=== PATIENT | female | born 2000 | race Caucasian/White ===

== ENCOUNTER 2021-06-30 18:20 | Observation (INO) | payer OTHER, SELFPAY ==
[2021-06-30] VITALS (7 sets, daily range): PULSE 97–111; O2SAT 95–100; BMI 27.3
--- NOTE | 2021-06-30 19:31 | OBADM ---
This patient, Jeremi Alonso, admitted to the OB room OB Post 117 for observation. Patient/family oriented to hospital policies and general routines including ID bracelet, bed and alarms, visiting hours, pain management, procedures, bathroom and other care routines, personal items, smoking policy, room service/diet, and visiting hours. Patient/Family are encouraged to report perceived risks to care and to ask questions if they do not understand what they are told or what they should do.
--- NOTE | 2021-07-07 13:51 | PM.OBTRLD ---
OB - Triage/Final Diagnosis Visit Information Comments/Additional reasons for admission: I have assessed the risk for this patient, Jeremi Alonso, and determined that she would benefit from observation care. Final Diagnosis (1) Vaginal discharge during : Code(s): O26.899 - Other specified related conditions, unspecified trimester; N89.8 - Other specified noninflammatory disorders of vagina Status: Acute
== END 2021-06-30 20:00 | disposition home or self-care (01) ==
PROVIDERS: Admitting Provider Obstetrics & Gynecology; Visit Provider Obstetrics & Gynecology
DX: O26.892 Other specified pregnancy related conditions, second trimester (principal); N89.8 Other specified noninflammatory disorders of vagina; Z3A.27 27 weeks gestation of pregnancy
CPT/HCPCS: G0378; G0379

== ENCOUNTER 2021-08-01 12:00 | Observation (INO) | payer OTHER, SELFPAY ==
[2021-08-01] VITALS (8 sets, daily range): BP systolic 101–118; BP diastolic 55–84; PULSE 84–101; TEMP 36.8–37.2; BMI 27.5
[2021-08-01 13:09] LABS: Add Urine Microscopic? YES; Appearance Urine Clear (Clear); Bacteria Urine Trace /hpf; Bilirubin Urine Negative (Negative); Blood Urine Negative (Negative); Color Urine Straw (Yellow); Glucose Urine UA Negative (Negative); Ketones Urine 1+ mg/dL (Negative); Leukocyte Esterase Ur Trace LEU/UL (Negative); Mucus Urine Rare /lpf; Nitrate Urine Negative (Negative); Protein Urine Negative (Negative); RBC Urine 0-2 /hpf (0-2); Specific Grav Ur 1.008 (1.001-1.035); Squamous Epithelial Cell Urine Occasional /hpf (Few); Urobilinogen Urine Negative mg/dL (<2.0); WBC Urine 0-3 /hpf
[2021-08-01] MEDS: DEXTROSE 5%/LACTATED RINGERS 1,000 ML 999 ML IV CONT (14:36)
[2021-08-01] MEDS: ONDANSETRON INJ 4 MG/2 ML VIAL IV PUSH (14:38)
--- NOTE | 2021-08-01 16:24 | PM.OBTRLD ---
OB - Triage/Final Diagnosis Visit Information Date of evaluation: 08/01/21 Reason for evaluation: threatened labor and other (nausea) Comments/Additional reasons for admission: I have assessed the risk for this patient, Jeremi Alonso, and determined that she would benefit from observation care. Evaluation Baseline heart rate: 125 Variability: Moderate (11-25) monitor accelerations: Present monitor decelerations: Variable Cervical dilation (cm): 0 Laboratory results: Laboratory Tests 08/01/21 12:55 Urine Color Straw Urine Appearance Clear Urine pH 7.0 Ur Specific [employer] 1.008 Urine Protein Negative Urine Glucose (UA) Negative Urine Ketones 1+ H Ur Blood (Man) Negative Urine Nitrate Negative Urine Bilirubin Negative Urine Urobilinogen Negative Leukocyte Esterase Rfl Trace H Urine RBC 0-2 Urine WBC 0-3 Ur Squamous Epith Cells Occasional Urine Bacteria Trace Urine Mucus Rare Vital signs: Vital Signs - 24 hr 08/01/21 12:53 08/01/21 12:54 08/01/21 13:00 Temperature 37.2 C Pulse Rate 93 97 Blood Pressure 113/74 118/77 08/01/21 14:00 08/01/21 15:10 08/01/21 16:00 Temperature Pulse Rate 99 101 H 93 Blood Pressure 111/72 112/66 104/84
== END 2021-08-01 17:19 | disposition home or self-care (01) ==
PROVIDERS: Admitting Provider Student in an Organized Health Care Education/Training Program; PCP Physician Assistant; Visit Provider Student in an Organized Health Care Education/Training Program
DX: O47.9 False labor, unspecified (principal); R11.0 Nausea; Z3A.00 Weeks of gestation of pregnancy not specified
CPT/HCPCS: 81001; 84112; 96361; 96374; G0378; G0379; J2405; J7121

== ENCOUNTER 2021-08-03 00:12 | Observation (INO) | payer OTHER, SELFPAY ==
[2021-08-03] VITALS (31 sets, daily range): BP systolic 94–118; BP diastolic 49–68; PULSE 86–130; O2SAT 97–100
[2021-08-03] MEDS: TERBUTALINE SULFATE 1 MG/ML VIAL 0.25 MG SUB-Q (01:55)
--- NOTE | 2021-08-21 16:58 | PM.OBTRLD ---
OB - Triage/Final Diagnosis Visit Information Comments/Additional reasons for admission: I have assessed the risk for this patient, Jeremi Alonso, and determined that she would benefit from observation care. Final Diagnosis (1) False labor: Code(s): O47.9 - False labor, unspecified Status: Acute
== END 2021-08-03 03:35 | disposition home or self-care (01) ==
PROVIDERS: Admitting Provider Obstetrics & Gynecology; PCP Physician Assistant; Visit Provider Obstetrics & Gynecology
DX: O47.9 False labor, unspecified (principal); Z3A.00 Weeks of gestation of pregnancy not specified
CPT/HCPCS: 96372; G0378; G0379; J3105

== ENCOUNTER 2021-08-05 11:48 | Observation (INO) | payer OTHER, SELFPAY ==
[2021-08-05] VITALS (34 sets, daily range): BP systolic 91–111; BP diastolic 44–66; PULSE 100–137; TEMP 37.4; O2SAT 98–100; BMI 27.1
--- NOTE | ~2021-08-05 | US_ITS ---
EXAMINATION: US OB limited w BPP DATE: 08/05/2021 18:12 INDICATION: Contractions in variable cardiac decelerations during third trimester . TECHNIQUE: Real-time pelvic ultrasound was performed. The interpreting radiologist was not present fo r the study. COMPARISON: None. FINDINGS: There is a single living fetus in vertex presentation. The placenta is anterior. heart rate is 126 beats per minute (bpm). The cervical length measured 2.4 cm and 2.7 cm in the dependent measurem ents which is below normal range but without evident funneling. Biophysical profile performed by the technologist: breathing (30 sec sustained breathing in 30 minutes): 2 out of 2 movement (3 gross body movements in 30 minutes): 2 out of 2 tone (one episode of wdgkcen-yhxdclwrm-vchtmsv limb movement): 2 out of 2 Amniotic fluid pocket (2 cm): 2 out of 2 Total score: 8 out of 8 IMPRESSION: 1. Single living fetus in vertex presentation with heart rate of 128 bpm. 2. Biophysical profile 8 out of 8. 3. Mildly decreased cervical length measuring 2.4-2.7 similar but without funneling. Reviewed, dictated and finalized at location H. ECT GEOPHYSICIST IMPRESSION: 1. Single living fetus in vertex presentation with heart rate of 128 bpm. 2. Biophysical profile 8 out of 8. 3. Mildly decreased cervical length measuring 2.4-2.7 similar but without funne ling.
--- NOTE | 2021-08-05 12:11 | OBADM ---
This patient, Jeremi Alonso, admitted to the OB room OB Post 116 for observation. Patient/family oriented to hospital policies and general routines including ID bracelet, bed and alarms, visiting hours, pain management, procedures, bathroom and other care routines, personal items, smoking policy, room service/diet, and visiting hours. Patient/Family are encouraged to report perceived risks to care and to ask questions if they do not understand what they are told or what they should do.
[2021-08-05] MEDS: LACTATED RINGERS 1,000 ML 999 ML IV CONT (12:37)
[2021-08-05] MEDS: ONDANSETRON INJ 4 MG/2 ML VIAL IV PUSH (12:38)
[2021-08-05 12:52] LABS: Alanine Aminotransferase 23 U/L (4-35); Albumin Level 3.6 g/dL (3.5-5.1); Alkaline Phosphatase 112 U/L (38-126); Anion Gap 8 mmol/L (8-16); Aspartate Amino Transferase 28 U/L (14-36); Bilirubin,Total 0.6 mg/dL (0.2-1.3); Blood Urea Nitrogen 6 mg/dL (7-17); Calcium 8.7 mg/dL (8.4-10.2); Carbon Dioxide 22 mmol/L (22-30); Chloride 103 mmol/L (98-107); Estimated Glomerular Filt Rate > 60; Glucose 120 mg/dL (65-110); Potassium 3.1 mmol/L (3.4-5.0); Sodium 133 mmol/L (137-145)
[2021-08-05 15:43] LABS: Add Urine Microscopic? YES; Appearance Urine Clear (Clear); Bacteria Urine Trace /hpf; Bilirubin Urine Negative (Negative); Blood Urine Negative (Negative); Color Urine Yellow (Yellow); Glucose Urine UA Negative (Negative); Ketones Urine 2+ mg/dL (Negative); Leukocyte Esterase Ur Negative LEU/UL (NEGATIVE); Mucus Urine Rare /lpf; Nitrate Urine Negative (Negative); Protein Urine 1+ mg/dL (Negative); RBC Urine 0-2 /hpf (0-2); Specific Grav Ur 1.017 (1.001-1.035); Squamous Epithelial Cell Urine Rare /hpf (Few); WBC Urine 0-3 /hpf (0-3)
[2021-08-05] MEDS: NIFEdipine 10 MG CAPSULE 20 MG PO (16:03)
[2021-08-05] MEDS: hydrOXYzine HCL 25 MG TABLET PO (16:04)
[2021-08-05] MEDS: PROMETHAZINE HCL 25 MG/ML AMPUL 12.5 MG IV PUSH (16:27)
[2021-08-05] MEDS: KCL 40 MEQ/0.45% NS 1,000 ML 200 ML IV CONT (16:28)
--- NOTE | 2021-08-05 17:32 | PM.IMHP ---
H&P: HPI History of Present Illness Date/Time: 08/05/21 17:32 Chief Complaint: persistent nausea/vomiting contractions Narrative: 21 yo at 32w4d who was seen in the office for her first OB visit with me. Pt c/o persistent N/V. Pt had been seen earlier last week for similar symptoms. Pt states she is also having persistent contractions. pt states the pain from the contractions makes her nausea worse. She has not been able to tolerate any PO since 0200. Review of Systems Cardiovascular: Cardiovascular: Denies chest pain, Denies leg edema, Denies palpitations, Denies dyspnea and Denies dyspnea on exertion Respiratory: Respiratory: Denies cough, Denies dyspnea and Denies dyspnea on exertion Gastrointestinal: Gastrointestinal: Denies abdominal pain, Denies constipation, Denies diarrhea, Denies nausea and Denies vomiting Genitourinary: Genitourinary: Denies hematuria, Denies urinary frequency, Denies dysuria, Denies pelvic pain, Denies urinary incontinence and Denies vaginal discharge Neurologic: Reports system reviewed and no additional complaints, except as documented Psychiatric: Psychiatric: Reports no additional psychiatric complaints Endocrine: Endocrine: Denies palpitations Meds Home Medications and Allergies Home Medications Medication Instructions Recorded Confirmed Type WesTab Plus 1 tablet PO DAILY 06/30/21 08/01/21 History aspirin 81 mg PO DAILY 06/30/21 08/01/21 History calcium carbonate-vitamin D3 1 tablet PO DAILY 06/30/21 08/01/21 History [Oysco 500/D] folic acid 2 mg PO BID 06/30/21 08/01/21 History hydroxyzine HCl 25 mg PO TID PRN 06/30/21 08/01/21 History omeprazole 20 mg PO DAILY 06/30/21 08/01/21 History valacyclovir 500 mg PO DAILY 06/30/21 08/01/21 History ondansetron HCl [Zofran] 4 mg PO Q6H PRN #20 tablet 08/01/21 Rx Allergies Allergy/AdvReac Type Severity Reaction Status Date / Time No Known Allergies Allergy Verified 06/30/21 19:10 Vital Signs Vital Signs - 24 hr 08/05/21 12:16 08/05/21 12:30 08/05/21 12:46 Pulse Rate 107 H 109 H 107 H Blood Pressure 111/66 99/62 L 95/57 L Pulse Oximetry 08/05/21 13:00 08/05/21 15:42 08/05/21 15:47 Pulse Rate 113 H Blood Pressure 91/56 L Pulse Oximetry 99 100 08/05/21 15:52 08/05/21 15:57 08/05/21 16:02 Pulse Rate Blood Pressure Pulse Oximetry 99 99 100 08/05/21 16:07 08/05/21 16:12 08/05/21 16:17 Pulse Rate Blood Pressure Pulse Oximetry 100 100 100 08/05/21 16:22 08/05/21 16:27 08/05/21 16:32 Pulse Rate Blood Pressure Pulse Oximetry 100 98 99 08/05/21 16:37 08/05/21 16:42 08/05/21 16:47 Pulse Rate Blood Pressure Pulse Oximetry 100 100 100 08/05/21 16:52 08/05/21 16:57 08/05/21 17:02 Pulse Rate Blood Pressure Pulse Oximetry 100 100 100 08/05/21 17:07 08/05/21 17:12 08/05/21 17:17 Pulse Rate Blood Pressure Pulse Oximetry 100 99 100 08/05/21 17:22 08/05/21 17:27 Pulse Rate Blood Pressure Pulse Oximetry 100 100 Exam Const: General: no acute distress Eyes: EOM: EOMs intact bilaterally Neck: Neck: supple Thyroid: thyroid normal Chest: Breast/axilla inspection: normal inspection of the breasts Breast/axilla palpation: normal palpation of the breasts, normal palpation of the axillae and no axillary lymphadenopathy Resp: Effort & Inspection: normal respiratory effort Auscultation: clear to auscultation bilaterally Cardio: Rate: regular rate Rhythm: regular rhythm GI: Inspection: non-distended GI Palp: Yes Soft to palpation, No Tenderness to palpation present (GI) and No Guarding due to palpation present (GI) Auscultation: normal bowel sounds : General: No bladder normal to palpation OB/external & speculum: external exam normal; no bleeding, vaginal bleeding and vaginal discharge Manual OB Exam: dilated fingertip Amniotic Fluid: no fluid Skin: General skin exam: normal color and no rashes or lesions noted Neur
[2021-08-05] MEDS: THIAMINE HCL INJ 100 MG, FOLIC ACID INJ 1 MG, MULTIVITAMINS-12 INJ VIAL 1 5 ML, MULTIVI... 125 MG IV CONT (22:39)
[2021-08-06] VITALS (12 sets, daily range): BP systolic 89–127; BP diastolic 41–89; PULSE 97–103; RESP 16–18; TEMP 36.9–37.4
[2021-08-06 06:27] LABS: Anion Gap 4 mmol/L (8-16); Blood Urea Nitrogen 4 mg/dL (7-17); Calcium 7.5 mg/dL (8.4-10.2); Carbon Dioxide 22 mmol/L (22-30); Chloride 104 mmol/L (98-107); Estimated CRCL calculation 145 ml/min; Estimated Glomerular Filt Rate > 60; Glucose 110 mg/dL (65-110); Potassium 2.8 mmol/L (3.4-5.0); Sodium 130 mmol/L (137-145)
[2021-08-06] MEDS: ACETAMINOPHEN 325 MG TABLET 650 MG PO (07:41)
[2021-08-06] MEDS: KCL 40 MEQ/0.9% SOD CHL 1,000 ML 200 ML IV CONT (08:17)
[2021-08-06] MEDS: LACTATED RINGERS 1,000 ML 125 ML IV CONT (14:18)
--- NOTE | 2021-08-06 15:26 | PM.DS ---
DS: Admitting Diagnosis Discharge Date 08/06/21 Admitting Diagnosis contractions hyperemesis hypokalemia DS: Summary Hospital Course Reason for hospitalization: hyperemesis contractions hypokalemia Hospital Course: 21 yo G1 at 32w who was seen in office complaining of hyperemesis. Pt states she was unable to tolerate PO. She was also having regular contractions. The pain of her contractions exacerbated her nausea. Pt was given IVF hydration and anti-emetics. Pt's symptoms improved overnight. US showed CL >2.5cm. Pt was noted to be hypokalemic likely due to emesis. Pt was given potassium replacement. Status at Discharge Functional status at discharge: independent ambulation Overall status at discharge: patient is back to baseline Time Spent with Patient Time attestation: Total time spent providing and/or coordinating discharge services: Time spent: Less than 30 minutes Exam Const: General: cooperative, healthy appearing and comfortable Nutritional Appearance: average body habitus Orientation/consciousness: oriented to person Resp: Effort & Inspection: normal respiratory effort and able to speak in complete sentences Cardio: Rate: regular rate Rhythm: regular rhythm GI: Inspection: normal to inspection, no edema, non-distended and other (Gravid) GI Palp: No abdominal tenderness and Yes Soft to palpation Skin: General skin exam: normal color and no rashes or lesions noted Neuro: General: patient oriented x3 Extrem: General: normal to inspection and full ROM DS: Data Data Completed and Pending Labs on day of discharge: Labs from last 24 hours 08/06/21 08/06/21 08/05/21 15:03 05:46 15:23 Sodium Pending 130 L Potassium Pending 2.8 L* Chloride Pending 104 Carbon Dioxide Pending 22 Anion Gap Pending 4 L BUN Pending 4 L Creatinine Pending 0.50 L Estim Creat Clear Calc Pending 145 Estimated GFR Pending > 60 Glucose Pending 110 Calcium Pending 7.5 L Urine Color Yellow Urine Appearance Clear Urine pH 6.0 Ur Specific [place] 1.017 Urine Protein 1+ H Urine Glucose (UA) Negative Urine Ketones 2+ H Ur Blood (Man) Negative Urine Nitrate Negative Urine Bilirubin Negative Urine Urobilinogen 2.0 H Ur Leukocyte Esterase Negative Urine RBC 0-2 Urine WBC 0-3 Ur Squamous Epith Cells Rare Urine Bacteria Trace Urine Mucus Rare Discharge Plan Discharge Discharging Clinician: Jaime Arevalo Patient Disposition: Home, Self-Care Activity: as tolerated and pelvic rest Diet: regular Discharge Instructions: OB ANTEPARTUM DISCHARGE INSTRUCTIONS This information is given to help you properly care for yourself at home after your discharge from the hospital. Follow these instructions until your doctor tells you otherwise. DIET: Eat Three Well Balanced Meals per Day Drink at Least Eight 8-Ounce Glasses of Caffeine-Free Beverages Daily Additional Diet Instructions: ACTIVITY: As Tolerated Increase Periods of Rest Additional Activity Instructions: RETURN TO LABOR AND DELIVERY IF YOU HAVE: Any Change In Baby's Normal Movement Pattern Any Leakage of Fluid More than 6 Contractions in an Hour Vaginal Bleeding Additional Reasons to Return to Labor and Delivery: Contractions may feel like abdominal pain, tightening, cramping, pressure, back ache, or thigh ache. OTHER INSTRUCTIONS: FOLLOW-UP CARE: Keep Next Scheduled Appointment To see in/on Valuables released to patient or family? Medications from home returned to patient? I Acknowledge Receipt of and Understand the Above Instructions IF YOU HAVE ANY QUESTIONS REGARDING THESE INSTRUCTIONS, PLEASE CALL [phone]. IF PROBLEMS ARISE, CALL YOUR PROVIDER. IF EMERGENCY CARE IS NEEDED, [facility]S EMERGENCY ROOM IS AVAILABLE 24 HOURS A DAY. Stand Alone Forms: General Discharge Information Follow-up/Referra
[2021-08-06 15:40] LABS: Anion Gap 2 mmol/L (8-16); Blood Urea Nitrogen 3 mg/dL (7-17); Carbon Dioxide 24 mmol/L (22-30); Chloride 107 mmol/L (98-107); Estimated CRCL calculation 177 ml/min; Estimated Glomerular Filt Rate > 60; Glucose 94 mg/dL (65-110); Potassium 3.5 mmol/L (3.4-5.0); Sodium 133 mmol/L (137-145)
== END 2021-08-06 16:47 | disposition home or self-care (01) ==
PROVIDERS: Admitting Provider Student in an Organized Health Care Education/Training Program; PCP Physician Assistant; Visit Provider Student in an Organized Health Care Education/Training Program
DX: O21.1 Hyperemesis gravidarum with metabolic disturbance (principal); O60.03 Preterm labor without delivery, third trimester; Z3A.32 32 weeks gestation of pregnancy
CPT/HCPCS: 36415; 59025; 76815; 76819; 80048; 80053; 81001; 96361; 96365; 96366; 96367; 96375; A9270; G0378; G0379; J2405; J2550; J3411; J3475; J7120; J7121

== ENCOUNTER 2021-08-17 22:35 | Observation (INO) | payer OTHER, SELFPAY ==
[2021-08-17] VITALS (20 sets, daily range): BP systolic 104–120; BP diastolic 65–76; PULSE 83–110; O2SAT 99–100; BMI 27.4
[2021-08-17] MEDS: ACETAMINOPHEN 500 MG TABLET 1000 MG PO (23:30)
[2021-08-18] VITALS (9 sets, daily range): BP systolic 106–120; BP diastolic 66–83; PULSE 91–112; O2SAT 100
[2021-08-18 00:20] LABS: Add Urine Microscopic? NO; Appearance Urine Clear (Clear); Bilirubin Urine Negative (Negative); Blood Urine Negative (Negative); Color Urine Yellow (Yellow); Glucose Urine UA Negative (Negative); Ketones Urine Negative (Negative); Leukocyte Esterase Ur Negative LEU/UL (Negative); Nitrate Urine Negative (Negative); Protein Urine Negative (Negative); Specific Grav Ur 1.008 (1.001-1.035); Urobilinogen Urine Negative mg/dL (<2.0)
[2021-08-18] MEDS: TERBUTALINE SULFATE 1 MG/ML VIAL 0.25 MG SUB-Q (00:52)
--- NOTE | 2021-08-21 11:23 | P.PNOB_ITS ---
OB - Triage/Final Diagnosis Visit Information Date of evaluation: 08/18/21 Reason for evaluation: threatened labor Comments/Additional reasons for admission: I have assessed the risk for this patient, Jeremi Francois Gavin, and determined that she would benefit from obs ervation care. Evaluation Laboratory results: Laboratory Tests 08/18/21 00:09 Urine Color Yellow Urine Appearance Clear Urine pH 7.0 Ur Specific [place] 1.008 Urine Protein Negative Urine Glucose (UA) Negative Urine Ketones Negative Ur Blood (Man) Negative Urine Nitrate Negative Urine Bilirubin Negative Urine Urobilinogen Negative Leukocyte Esterase Rfl Negative
== END 2021-08-18 02:13 | disposition home or self-care (01) ==
PROVIDERS: Admitting Provider Student in an Organized Health Care Education/Training Program; PCP Physician Assistant; Visit Provider Student in an Organized Health Care Education/Training Program
DX: O47.9 False labor, unspecified (principal); Z3A.00 Weeks of gestation of pregnancy not specified
CPT/HCPCS: 81003; 84112; A9270; G0378; G0379; J3105

== ENCOUNTER 2021-08-26 09:54 | Observation (INO) | payer OTHER, SELFPAY ==
[2021-08-26 10:01] VITALS: BP 127/86; PULSE 112
[2021-08-26 10:15] VITALS: BP 138/78; PULSE 122
[2021-08-26 10:30] VITALS: BP 126/78; PULSE 115
--- NOTE | 2021-08-26 10:30 | OBADM ---
This patient, Jeremi Alonso, admitted to the OB room Labor/Delivery/Recovery 106 for observation. Patient/family oriented to hospital policies and general routines including ID bracelet, bed and alarms, visiting hours, pain management, procedures, bathroom and other care routines, personal items, smoking policy, room service/diet, and visiting hours. Patient/Family are encouraged to report perceived risks to care and to ask questions if they do not understand what they are told or what they should do.
[2021-08-26] MEDS: ONDANSETRON INJ 4 MG/2 ML VIAL IV PUSH (10:33)
[2021-08-26 10:45] VITALS: BP 136/81; PULSE 105
[2021-08-26 11:00] VITALS: BP 120/69; PULSE 133
[2021-08-26] MEDS: ACETAMINOPHEN 500 MG TABLET 1000 MG PO (12:31)
[2021-08-26 13:22] LABS: Add Urine Microscopic? YES; Appearance Urine Cloudy (Clear); Bacteria Urine 2+ /hpf; Bilirubin Urine Negative (Negative); Blood Urine Negative (Negative); Color Urine Straw (Yellow); Glucose Urine UA Negative (Negative); Ketones Urine Trace mg/dL (Negative); Leukocyte Esterase Ur 1+ LEU/UL (Negative); Mucus Urine Rare /lpf; Nitrate Urine Negative (Negative); Protein Urine Negative (Negative); RBC Urine 0-2 /hpf (0-2); Specific Grav Ur 1.008 (1.001-1.035); Squamous Epithelial Cell Urine Few /hpf (Few); Urobilinogen Urine Negative mg/dL (<2.0)
[2021-08-26] MEDS: LACTATED RINGERS 1,000 ML 125 ML IV CONT (15:31)
--- NOTE | 2021-08-29 08:03 | P.PNOB_ITS ---
OB - Triage/Final Diagnosis Visit Information Date of evaluation: 08/26/21 Reason for evaluation: threatened labor Comments/Additional reasons for admission: I have assessed the risk for this patient, Jeremi Francois Saulparris, and determined that she would benefit from obs ervation care. Evaluation Laboratory results: Laboratory Tests 08/26/21 12:38 Urine Color Straw Urine Appearance Cloudy H Urine pH 7.0 Ur Specific [place] 1.008 Urine Protein Negative Urine Glucose (UA) Negative Urine Ketones Trace Ur Blood (Man) Negative Urine Nitrate Negative Urine Bilirubin Negative Urine Urobilinogen Negative Leukocyte Esterase Rfl 1+ H Urine RBC 0-2 Urine WBC 4-6 H Ur Squamous Epith Cells Few Urine Bacteria 2+ H Urine Mucus Rare
== END 2021-08-26 14:48 | disposition home or self-care (01) ==
PROVIDERS: Admitting Provider Student in an Organized Health Care Education/Training Program; PCP Physician Assistant; Visit Provider Student in an Organized Health Care Education/Training Program
DX: O47.03 False labor before 37 completed weeks of gestation, third trimester (principal); Z3A.35 35 weeks gestation of pregnancy
CPT/HCPCS: 81001; 96374; A9270; G0378; G0379; J2405; J7120

== ENCOUNTER 2021-09-16 02:15 | Inpatient (IN) | payer OTHER, SELFPAY ==
[2021-09-16] VITALS (87 sets, daily range): BP systolic 70–149; BP diastolic 35–120; PULSE 55–155; RESP 16–18; TEMP 36.5–37.7; O2SAT 94–100; BMI 27.5
[2021-09-16 02:49] LABS: Basophils Percent Auto 0.3 % (0.2-1.2); Eosinophils Absolute Auto 0.1 K/mm3 (0-0.3); Eosinophils Percent Auto 0.6 % (0-4.4); Hematocrit 33.2 % (37.0-47.0); Hemoglobin 11.2 g/dL (12.0-15.0); Immature Granulocyte Absolute 0.63 K/mm3 (0.00-0.031); Immature Granulocyte Percent A 5.4 % (0-0.5); Lymphocytes Absolute Auto 2.26 K/mm3 (0.9-3.2); Lymphocytes Percent Auto 19.6 % (18.3-44.2); Mean Corpuscular HGB Conc 33.7 g/dl (32-36); Mean Corpuscular Hemoglobin 29.8 pg (26-34); Mean Corpuscular Volume 88.3 fl (80-100); Mean Platelet Volume 11.1 fl (7.4-10.4); Monocytes Absolute Auto 1.2 K/mm3 (0.1-0.6); Monocytes Percent Auto 10.6 % (2.6-8.5); Neutrophils Absolute Auto 7.3 K/mm3 (1.3-6.7); Neutrophils Percent Auto 63.5 % (45.5-73.1); Platelet Count Result 201 k/mm3 (150-375); Red Blood Count 3.76 M/mm3 (4.2-5.4); White Blood Count 11.6 K/mm3 (4.5-10.0)
--- NOTE | 2021-09-16 03:07 | LDADM ---
This patient, Jeremi Alonso, was admitted to Labor/Delivery/Recovery 105 on 09/16/21 at 02:15. Plans for labor, pain management and were discussed with patient. Patient/family oriented to hospital policies and general routines including ID bracelet, bed and alarms, visiting hours, pain management, procedures, bathroom and other care routines, personal items, smoking policy, room service/diet and guest tray routines, infant security routines, and visiting hours. Patient/Family are encouraged to report perceived risks to care and to ask questions if they do not understand what they are told or what they should do. See OBIX for further documentation.
[2021-09-16] MEDS: ONDANSETRON INJ 4 MG/2 ML VIAL IV PUSH (03:17)
[2021-09-16] MEDS: LACTATED RINGERS 1,000 ML 125 ML IV CONT ×2 (03:17→04:08)
--- NOTE | 2021-09-16 03:49 | P.PNAN_ITS ---
Anes - Eval Pre Procedure Procedure: LAbor epidural Date/Time: 09/16/21 03:49 Surgeon: Irina Preop Diagnosis: Abd pain with contractions Pre Op Diagnosis: Leaking Patient Data Age: 21 Gender: F Height: 1.63 m Weight: 72.73 kg Last Vital Signs Temp 98.9 F 09/16/21 02:23 Pulse 99 09/16/21 03:00 BP 133/88 09/16/21 03:00 Allergies Allergy/AdvReac Type Severity Reaction Status Date / Time No Known Allergies Allergy Verified 06/30/21 19:10 Home Medications Medication Instructions Recorded Confirmed Type WesTab Plus 1 tablet PO DAILY 06/30/21 08/28/21 History calcium carbonate-vitamin D3 1 tablet PO DAILY 06/30/21 08/28/21 History [Oysco 500/D] hydroxyzine HCl 25 mg PO TID 06/30/21 08/28/21 History omeprazole 20 mg PO DAILY PRN 06/30/21 08/28/21 History valacyclovir 500 mg PO DAILY 06/30/21 08/28/21 History Laboratory Tests 09/16/21 09/16/21 02:40 02:40 WBC 11.6 K/mm3 H K/mm3 (4.5-10.0) RBC 3.76 M/mm3 L M/mm3 (4.2-5.4) Hgb 11.2 g/dL L g/dL (12.0-15.0) Hct 33.2 % L % (37.0-47.0) MCV 88.3 fl fl (80-100) MCH 29.8 pg pg (26-34) MCHC 33.7 g/dl g/dl (32-36) RDW 13.0 % % (11.5-14.5) Plt Count 201 k/mm3 k/mm3 (150-375) MPV 11.1 fl H fl (7.4-10.4) Immature Gran % (Auto) 5.4 % H % (0-0.5) Neut % (Auto) 63.5 % % (45.5-73.1) Lymph % (Auto) 19.6 % % (18.3-44.2) [place] % (Auto) 10.6 % H % (2.6-8.5) Eos % (Auto) 0.6 % % (0-4.4) Baso % (Auto) 0.3 % % (0.2-1.2) Lymph # (Auto) 2.26 K/mm3 K/mm3 (0.9-3.2) [place] # (Auto) 1.2 K/mm3 H K/mm3 (0.1-0.6) Eos # (Auto) 0.1 K/mm3 K/mm3 (0-0.3) Baso # (Auto) 0.0 K/mm3 K/mm3 (0.0-0.1) Abs Immat Gran (auto) 0.63 K/mm3 H K/mm3 (0.00-0.031) Absolute Neuts (auto) 7.3 K/mm3 H K/mm3 (1.3-6.7) Absolute Nucleated RBC 0.0 K/mm3 K/mm3 (0.0-0.012) Nucleated RBC % 0.0 % % (0.0-0.2) RPR Pending Patient hx anesthesia problems: none Family hx anesthesia problems: none Results Review: All pre-operative results and documents have been reviewed as part of the pre-operative evaluation. [facility] Past Medical History Medical History Anxiety and depression GERD (gastroesophageal reflux disease) Over weight and not yet delivered Seizure STD (female) Family History Family History Other No pertinent family history Social History Social History Smoking status: Never smoker Substance use: never Spiritual care concerns: No Exam Day of Procedure 09/16/21 03:49 Patient weight: overweight
[2021-09-16 06:08] LABS: Rapid Plasma Reagin Non-Reactive (NonReactive)
[2021-09-16] MEDS: OXYTOCIN 30 UNITS/NS 500 ML 30 UNITS/500 ML BAG 999 UNITS IV CONT (07:40)
--- NOTE | 2021-09-16 07:41 | WPDHPUPDATE1 ---
History and Physical Update Update Date/Time: 09/16/21 07:41 21 yo G1 at 38w4d who presents after SROM at 0200. She reports regular contractions. She denies any vaginal bleeding. 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 History and Physical has been reviewed, including an updated exam of the patient. There are NO changes in the patient's condition. Risks, benefits, and alternatives have been discussed and questions answered. Patient agrees to proceed with procedure. A/P: admit to L&D routine admission orders Rh+ GBS neg SROM no admission continuous EFM expectant management
--- NOTE | 2021-09-16 07:43 | PM.OBPRVD ---
OB - Delivery Note Procedure Procedure: Patient pushed for a spontaneous vaginal delivery. The fetus was delivered atraumatically and placed on the maternal abdomen. The cord was clamped and cut after 1 minute of life. The cord was double clamped and cut and a segment of cord was collected for cord gases. Cord blood was collected for blood type and Coomb's testing. The placenta delivered spontaneously and was noted to be intact. The perineum was inspected and there were no lacerations noted. The uterus was firm and good hemostasis was noted. The patient and fetus were stable in the delivery room. Intrapartal events: None Induction method: none Delivery monitor: external FHT Route of delivery: Episiotomy description: None Laceration Description: Periurethral Specimen: No Quantitative Blood Loss (ml): 150 Anesthesia type: Epidural Disposition: floor () Complications: No immediate complications Baby Date of : 03/16/22 Time of : 07:23 Weeks of gestation at delivery: 38 gender: Female Weight (pounds): 7 Weight (ounces): 2 presentation: vertex position: Right Occiput Anterior Placenta delivery description: Spontaneous cord vessel description: 3 Vessels score one minute: 9 score five minutes: 9
[2021-09-16] MEDS: OXYTOCIN 30 UNITS/NS 500 ML 30 UNITS/500 ML BAG 125 UNITS IV CONT (08:10)
--- NOTE | 2021-09-16 10:13 | PC.NURSE ---
Patient transferred to post room #283 per wheelchair from labor and delivery. Support person present. Oriented to unit, room, information board, rooming in, admission packet and security measures. Patient verbalizes understanding.
[2021-09-16] MEDS: ACETAMINOPHEN 325 MG TABLET 650 MG PO (19:21)
[2021-09-16] MEDS: IBUPROFEN 600 MG TABLET PO (19:21)
[2021-09-17 04:30] VITALS: BP 114/60; PULSE 68; RESP 18; TEMP 36.8
[2021-09-17 05:32] LABS: Hematocrit 28.1 % (37.0-47.0); Hemoglobin 9.2 g/dL (12.0-15.0)
[2021-09-17 07:35] VITALS: BP 116/62; PULSE 65; RESP 16; TEMP 36.6; O2SAT 98
[2021-09-17] MEDS: ACETAMINOPHEN 325 MG TABLET 650 MG PO (08:19)
[2021-09-17] MEDS: POLYSACCHARIDE IRON COMPLEX 150 MG CAPSULE PO (08:20)
[2021-09-17] MEDS: IBUPROFEN 600 MG TABLET PO (08:20)
[2021-09-17] MEDS: DOCUSATE SODIUM 100 MG CAPSULE PO (08:20)
--- NOTE | 2021-09-17 12:03 | PC.NURSE ---
Patient viewed the discharge video Mother & Baby Care, The First Two Weeks . Patient was given the opportunity and encouraged to ask questions. Patient verbalized understanding of information shared and has been given the mother/baby guide for home reference.
--- NOTE | 2021-09-17 12:47 | WPDANLDPN2 ---
Anes-Prog Note L&D Date/Time: 09/17/21 12:47 Comfortable throughout: labor and delivery Neuraxial method: epidural Epidural/Spinal procedure site: clean & non-tender Neuro status: Neuro function grossly intact. Cardiovascular status: normal Respiratory status: normal Airway patency: baseline Mental status: baseline Post-Op hydration status: normal Vital Signs: Last Vital Signs Temp 36.6 C 09/17/21 07:35 Pulse 65 09/17/21 07:35 Resp 16 09/17/21 07:35 BP 116/62 09/17/21 07:35 Pulse Ox 98 09/17/21 07:35 Pain score (VAS): 08/26 Post-procedural complaints: none Patient feedback: Patient satisfied with anesthetic care.
--- NOTE | 2021-09-17 13:13 | PM.OBDSVD ---
DS: Admitting Diagnosis Discharge Date 09/17/21 Admitting Diagnosis spontaneous rupture of membranes intrauterine at term OB - DS: Summary OB Procedures : None OB Procedures Intrapartum: Spontaneous Vag Delivery OB Procedures: : None Status at Discharge Functional status at discharge: independent ambulation Overall status at discharge: patient is back to baseline Time Spent with Patient Time attestation: Total time spent providing and/or coordinating discharge services: Time spent: Less than 30 minutes Exam Const: General: comfortable and no acute distress Resp: Effort & Inspection: normal respiratory effort Auscultation: clear to auscultation bilaterally Cardio: Rate: regular rate GI: GI Palp: Yes Soft to palpation Auscultation: normal bowel sounds Other: Fundus firm below umbilicus Psych: Appearance: grossly normal Mental Status: mental status grossly normal Affect: normal affect DS: Data Data Completed and Pending Labs on day of discharge: Labs from last 24 hours 09/17/21 04:49 Hgb 9.2 L Hct 28.1 L Discharge Plan Discharge Discharging Clinician: Jaime Arevalo Patient Disposition: Home, Self-Care Activity: as tolerated and pelvic rest Diet: regular Patient Instructions: Antibiotic Form, Vaginal Delivery (DC) Stand Alone Forms: General Discharge Information Follow-up/Referrals: Jaime Arevalo MD [Physician] - 4 Weeks Discharge Medications: New acetaminophen [Mapap (acetaminophen)] 325 mg Tablet 650 mg PO Q6H PRN (Reason: Mild Pain (1-3) Or Headache) Qty: 30 RF: 0 ibuprofen 600 mg Tablet 600 mg PO Q6H PRN (Reason: Cramping) Qty: 30 RF: 0 polysaccharide iron complex 150 mg iron Capsule 150 mg PO BIDWM Qty: 60 RF: 0 Continued valacyclovir 500 mg tablet 500 mg PO DAILY RF: 0 omeprazole 20 mg capsule,delayed release(DR/EC) 20 mg PO DAILY PRN (Reason: Heartburn) RF: 0 hydroxyzine HCl 25 mg tablet 25 mg PO TID RF: 0 calcium carbonate-vitamin D3 [Oysco 500/D] 500 mg(1,250mg) -200 unit tablet 1 tablet PO DAILY RF: 0 WesTab Plus 27 mg iron- 1 mg tablet 1 tablet PO DAILY RF: 0 Date of admission: 09/16/21 02:15 Primary Care Provider: SaraiJoanie Admitting Provider: Jaime Arevalo Attending physician on admission: Jaime Arevalo Condition: Stable
== END 2021-09-17 15:55 | disposition home or self-care (01) | DRG 560 ==
LOC: ANHLDR 02:58 → ANHOB2 11:14
PROVIDERS: Admitting Provider Obstetrics & Gynecology; PCP Physician Assistant; Visit Provider Student in an Organized Health Care Education/Training Program
DX: O98.52 Other viral diseases complicating childbirth (principal); B00.9 Herpesviral infection, unspecified; O71.82 Other specified trauma to perineum and vulva; Z3A.38 38 weeks gestation of pregnancy; Z37.0 Single live birth
CPT/HCPCS: 36415; 85014; 85018; 85025; 86592; 86850; 86900; 86901; A9270; J2405; J2590; J2795; J7120

== ENCOUNTER 2022-09-04 16:20 | Emergency (ER) | payer OTHER, SELFPAY ==
[2022-09-04] VITALS (7 sets, daily range): BP systolic 103–131; BP diastolic 63–81; PULSE 73–110; RESP 14–18; TEMP 36.7; O2SAT 98–100
--- NOTE | 2022-09-04 19:55 | ED.GENADULT ---
HPI - General Adult General Chief complaint: Anxiety Stated complaint: low bp Time Seen by Provider: 09/04/22 18:55 Source: patient Mode of arrival: ambulatory Limitations: no limitations History of Present Illness HPI narrative: Patient is a 22 y/o female who presents to the ED with c/o lightheadedness. Patient reports on Thursday while at work she experienced an episode of diaphoresis, lightheadedness, nausea, generalized weakness. She felt like she was near passing out at that time. Her blood pressure was checked at work and noted to be low in the 80s systolic. Patient eventually improved without intervention. She had another episode on Thursday while at home. She called her primary care doctor today and was referred to the ED for further evaluation. She denies ever fully losing consciousness. She denies any current nausea or lightheadedness. She denies abdominal pain, chest pain, difficulty breathing, fevers, vision changes, cough or cold symptoms. Related Data Home Medications Medication Instructions Recorded Confirmed calcium carbonate 500 mg-vitamin 1 tablet PO DAILY 06/30/21 08/28/21 D3 5 mcg (200 unit) tablet (Oysco 500/D) hydroxyzine HCl 25 mg tablet 25 mg PO TID 06/30/21 08/28/21 omeprazole 20 mg capsule,delayed 20 mg PO DAILY PRN Heartburn 06/30/21 08/28/21 release vitamin with calcium 1 tablet PO DAILY 06/30/21 08/28/21 no.72-iron 27 mg-folic acid 1 mg tablet (WesTab Plus) valacyclovir 500 mg tablet 500 mg PO DAILY 06/30/21 08/28/21 Allergies Allergy/AdvReac Type Severity Reaction Status Date / Time No Known Allergies Allergy Verified 06/30/21 19:10 Review of Systems Review of Systems: CONSTITUTIONAL: Denies fever, chills, or sweats. EYES: Denies visual changes. CARDIOVASCULAR: Denies chest pain, palpitations, or edema. RESPIRATORY: Denies cough or dyspnea. GASTROINTESTINAL: See HPI. GENITOURINARY: Denies dysuria or hematuria. SKIN: Denies rash or itching. MUSCULOSKELETAL: Denies back pain, joint pain, or myalgia. NEUROLOGIC: See HPI. All systems reviewed & are unremarkable except as noted in HPI and below PMFSH Past Medical History Medical History Anxiety and depression GERD (gastroesophageal reflux disease) Over weight and not yet delivered Seizure STD (female) Surgical History Surgical History No pertinent past surgical history Family History Family History Other No pertinent family history Social History Social History Smoking status: Never smoker Substance use: never Spiritual care concerns: No Exam Narrative: GENERAL: Well appearing, well-nourished, non-toxic, in no acute distress. HEAD: Normocephalic, atraumatic. EYES: PERRLA/EOMI, conjunctiva clear. NECK: Supple. No adenopathy, no masses. RESPIRATORY: Airway patent, respirations nonlabored. Clear to auscultation bilaterally, no rales, rhonchi, wheezing. CARDIOVASCULAR: Regular rate and rhythm without murmurs, rubs, or gallops. Radial pulses 2+ and equal bilaterally. ABDOMINAL: Soft, nontender, nondistended, no hepatosplenomegaly. Normoactive BS. MUSCULOSKELETAL: Moves all extremities. Strength/ROM intact without gross deformities. No edema. SKIN: Warm, dry, normal color. No rashes. NEURO: A&O X3. Speech clear. Cranial nerves II-XII grossly intact. Steady gait. No ataxic movements. No focal deficits. PSYCHIATRIC: Appropriate mood and affect. Normal interaction. Course Vital Signs Vital signs: Vital Signs Temperature 98.0 F 09/04/22 17:00 Pulse Rate 110 H 09/04/22 17:00 Respiratory Rate 14 09/04/22 17:00 Blood Pressure 131/81 09/04/22 17:00 Pulse Oximetry 98 09/04/22 17:00 Oxygen Delivery Room Air 09/04/22 17:00 Tem
[2022-09-04 19:59] LABS: Glucose Point of Care 108 mg/dl (65-105)
[2022-09-04] MEDS: SODIUM CHLORIDE 0.9% IV 1,000 ML 999 ML IV CONT (20:26)
--- NOTE | 2022-09-04 20:27 | ECG_ITS ---
Measurements Intervals [place] Rate: 65 P: 76 UT: 150 QRS: 48 QRSD: 100 T: 62 QT: 388 QTc: 405 Interpretive Statements SINUS RHYTHM WITH SINUS ARRHYTHMIA BASELINE ARTIFACT- I, II, AVR, AVL NORMAL ECG NO PREVIOUS ECG AVAILABLE FOR COMPARISON Electronically Signed On 09-05-2022 7:42:17 [employer] by Harshad Anderson D.O.
[2022-09-04 20:39] LABS: Basophils Absolute Auto 0.1 K/mm3 (0.0-0.1); Basophils Percent Auto 0.8 % (0.2-1.2); Eosinophils Absolute Auto 0.1 K/mm3 (0-0.3); Eosinophils Percent Auto 1.9 % (0-4.4); Hematocrit 40.3 % (37.0-47.0); Hemoglobin 12.7 g/dL (12.0-15.0); Immature Granulocyte Absolute 0.04 K/mm3 (0.00-0.031); Immature Granulocyte Percent A 0.5 % (0-0.5); Lymphocytes Percent Auto 32.5 % (18.3-44.2); Mean Corpuscular HGB Conc 31.5 g/dl (32-36); Mean Corpuscular Hemoglobin 27.9 pg (26-34); Mean Corpuscular Volume 88.4 fl (80-100); Mean Platelet Volume 11.4 fl (7.4-10.4); Monocytes Absolute Auto 0.5 K/mm3 (0.1-0.6); Monocytes Percent Auto 7.2 % (2.6-8.5); Neutrophils Absolute Auto 4.2 K/mm3 (1.3-6.7); Neutrophils Percent Auto 57.1 % (45.5-73.1); Platelet Count Result 271 k/mm3 (150-375); Red Blood Count 4.56 M/mm3 (4.2-5.4); Red Cell Distribution Width 13.3 % (11.5-14.5); White Blood Count 7.4 K/mm3 (4.5-10.0)
[2022-09-04 20:40] LABS: Appearance Urine Cloudy (Clear); Bilirubin Urine Negative (Negative); Blood Urine Negative (Negative); Color Urine Yellow (Yellow); Glucose Urine UA Negative (Negative); Ketones Urine Negative (Negative); Leukocyte Esterase Ur Trace LEU/UL (Negative); Nitrate Urine Negative (Negative); Protein Urine Negative (Negative); Specific Grav Ur >= 1.030 (1.001-1.035); Urobilinogen Urine 0.2 mg/dL (<2.0); pH Urine 6.5 (5.0-9.0)
[2022-09-04 20:43] LABS: Mucus Urine Rare /lpf; Squamous Epithelial Cell Urine Many /hpf (Few); WBC Urine 0-3 /hpf
[2022-09-04 20:48] LABS: Add Urine Microscopic? YES
[2022-09-04 20:51] LABS: Alanine Aminotransferase 17 U/L (6-35); Alkaline Phosphatase 97 U/L (38-126); Anion Gap 5 mmol/L (8-16); Aspartate Amino Transferase 19 U/L (14-36); Bilirubin,Total 0.3 mg/dL (0.2-1.3); Blood Urea Nitrogen 11 mg/dL (7-17); Calcium 8.7 mg/dL (8.4-10.2); Carbon Dioxide 28 mmol/L (22-30); Chloride 104 mmol/L (98-107); Estimated CRCL calculation 99 ml/min; Estimated Glomerular Filt Rate > 60; Glucose 86 mg/dL (65-110); Potassium 3.8 mmol/L (3.4-5.0); Sodium 137 mmol/L (137-145)
== END 2022-09-04 21:58 | disposition home or self-care (01) ==
PROVIDERS: Emergency Provider Physician Assistant; PCP Physician Assistant
DX: I95.1 Orthostatic hypotension (principal); K21.9 Gastro-esophageal reflux disease without esophagitis; E66.3 Overweight; Z68.21 Body mass index [BMI] 21.0-21.9, adult
CPT/HCPCS: 36415; 80053; 81001; 82948; 85025; 93005; 96360; 99283; J7030

== ENCOUNTER 2022-11-29 13:51 | Emergency (ER) | payer OTHER, SELFPAY ==
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
[2022-11-29 14:02] VITALS: BP 119/70; PULSE 73; RESP 16; TEMP 36.9; O2SAT 100
--- NOTE | 2022-11-29 14:37 | PC.NURSE ---
Bedside US by Dr. Chambers at this time of fetus. Hr noted to be 140s per
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
[2022-11-29 15:07] LABS: Basophils Percent Auto 0.4 % (0.2-1.2); Eosinophils Absolute Auto 0.1 K/mm3 (0-0.3); Eosinophils Percent Auto 1.2 % (0-4.4); Hematocrit 38.3 % (37.0-47.0); Hemoglobin 12.5 g/dL (12.0-15.0); Immature Granulocyte Absolute 0.04 K/mm3 (0.00-0.031); Immature Granulocyte Percent A 0.6 % (0-0.5); Lymphocytes Absolute Auto 1.71 K/mm3 (0.9-3.2); Lymphocytes Percent Auto 24.7 % (18.3-44.2); Mean Corpuscular HGB Conc 32.6 g/dl (32-36); Mean Corpuscular Volume 88.9 fl (80-100); Mean Platelet Volume 10.9 fl (7.4-10.4); Monocytes Absolute Auto 0.6 K/mm3 (0.1-0.6); Monocytes Percent Auto 7.9 % (2.6-8.5); Neutrophils Absolute Auto 4.5 K/mm3 (1.3-6.7); Neutrophils Percent Auto 65.2 % (45.5-73.1); Platelet Count Result 212 k/mm3 (150-375); Red Blood Count 4.31 M/mm3 (4.2-5.4); Red Cell Distribution Width 13.6 % (11.5-14.5); White Blood Count 6.9 K/mm3 (4.5-10.0)
[2022-11-29 15:13] LABS: Appearance Urine Clear (Clear); Bacteria Urine 1+ /hpf; Bilirubin Urine Negative (Negative); Blood Urine Negative (Negative); Color Urine Yellow (Yellow); Glucose Urine UA Negative (Negative); Ketones Urine Negative (Negative); Leukocyte Esterase Ur 2+ LEU/UL (Negative); Nitrate Urine Negative (Negative); Non Pathogenic Casts 0-2; Protein Urine Negative (Negative); RBC Urine 0-2 /hpf (0-2); Specific Grav Ur 1.005 (1.001-1.035); Squamous Epithelial Cell Urine Occasional /hpf (Few); Urobilinogen Urine 0.2 mg/dL (<2.0)
[2022-11-29 15:18] LABS: Alanine Aminotransferase 19 U/L (6-35); Albumin Level 4.1 g/dL (3.5-5.1); Alkaline Phosphatase 61 U/L (38-126); Anion Gap 7 mmol/L (8-16); Aspartate Amino Transferase 20 U/L (14-36); Bilirubin,Total 0.4 mg/dL (0.2-1.3); Blood Urea Nitrogen 7 mg/dL (7-17); Carbon Dioxide 26 mmol/L (22-30); Chloride 104 mmol/L (98-107); Estimated CRCL calculation 156 ml/min; Estimated Glomerular Filt Rate > 60; Glucose 89 mg/dL (65-110); Potassium 3.9 mmol/L (3.4-5.0); Sodium 137 mmol/L (137-145)
[2022-11-29 15:19] LABS: Prothrombin Time 12.6 Seconds (11.1-14.7)
[2022-11-29 15:54] LABS: Add Urine Microscopic? YES
== END 2022-11-29 17:58 | disposition home or self-care (01) ==
PROVIDERS: Emergency Provider Preventive Medicine Aerospace Medicine; PCP Physician Assistant
DX: O9A.211 Injury, poisoning and certain other consequences of external causes complicating pregnancy, first trimester (principal); S39.012A Strain of muscle, fascia and tendon of lower back, initial encounter; R10.12 Left upper quadrant pain; O99.611 Diseases of the digestive system complicating pregnancy, first trimester; K21.9 Gastro-esophageal reflux disease without esophagitis; O99.281 Endocrine, nutritional and metabolic diseases complicating pregnancy, first trimester; E66.3 Overweight; Z3A.13 13 weeks gestation of pregnancy; V49.40XA Driver injured in collision with unspecified motor vehicles in traffic accident, initial encounter
CPT/HCPCS: 36415; 74160; 80053; 81001; 85025; 85610; 86850; 86900; 86901; 87086; 99284; Q9967

== ENCOUNTER 2023-03-03 16:52 | Observation (INO) | payer OTHER, SELFPAY ==
[2023-03-03] MEDS: TERBUTALINE SULFATE 1 MG/ML VIAL 0.25 MG SUB-Q ×2 (17:23→18:38)
[2023-03-03 17:43] VITALS: BP 120/58; PULSE 108; TEMP 37.1
[2023-03-03] MEDS: LACTATED RINGERS 1,000 ML 999 ML IV CONT (17:44)
[2023-03-03 17:46] VITALS: BMI 24.0
[2023-03-03 17:55] LABS: Bacteria Urine 2+ /hpf; RBC Urine >100 /hpf (0-2); Squamous Epithelial Cell Urine Moderate /hpf (Few)
[2023-03-03 18:00] VITALS: BP 106/72; PULSE 94
[2023-03-03 18:01] LABS: Appearance Urine Slightly Cloudy (Clear); Color Urine Light Red (Yellow)
[2023-03-03 18:02] LABS: Bilirubin Urine Negative (Negative); Blood Urine 3+ (Negative); Glucose Urine UA Negative (Negative); Ketones Urine Negative (Negative); Leukocyte Esterase Ur 3+ LEU/UL (NEGATIVE); Nitrate Urine Negative (Negative); Protein Urine Trace mg/dL (Negative); Urobilinogen Urine 0.2 mg/dL (<2.0)
[2023-03-03 18:03] LABS: Add Urine Microscopic? YES
[2023-03-03 18:30] VITALS: BP 116/63; PULSE 101
--- NOTE | 2023-03-03 19:36 | PC.NURSE ---
191 - Dr Blackburn paged at this time. 1918 - Dr Blackburn calls unit and is informed that patient now rates her pain 0/10 and is feeling no cramping, nothing noted on the toco, rocephin 1gm administered. Orders received to discharge patient home at this time with labor precautions. 1929 - Discharge instructions given to patient at this time and patient verbalizes understanding. Pt discharged to home.
--- NOTE | 2023-03-17 08:32 | PM.OBTRLD ---
OB - Triage/Final Diagnosis Visit Information Comments/Additional reasons for admission: I have assessed the risk for this patient, Jeremi Alonso, and determined that she would benefit from observation care. Evaluation Laboratory results: Laboratory Tests 03/03/23 17:34 Urine Color Light red H Urine Appearance Slightly cloudy Urine pH 7.0 Ur Specific [place] 1.010 Urine Protein Trace Urine Glucose (UA) Negative Urine Ketones Negative Ur Blood (Man) 3+ H Urine Nitrate Negative Urine Bilirubin Negative Urine Urobilinogen 0.2 Ur Leukocyte Esterase 3+ H Urine RBC >100 H Urine WBC 11-20 H Ur Squamous Epith Cells Moderate Urine Bacteria 2+ H Urine Casts 3-5 Final Diagnosis (1) Cramping affecting , antepartum: Code(s): O26.899 - Other specified related conditions, unspecified trimester; R10.9 - Unspecified abdominal pain Status: Acute
== END 2023-03-03 19:30 | disposition home or self-care (01) ==
PROVIDERS: Admitting Provider Obstetrics & Gynecology; PCP Physician Assistant; Visit Provider Obstetrics & Gynecology
DX: O26.892 Other specified pregnancy related conditions, second trimester (principal); R10.9 Unspecified abdominal pain; Z3A.27 27 weeks gestation of pregnancy
CPT/HCPCS: 81001; 87086; 96372; 96374; G0378; G0379; J0696; J3105; J7120

== ENCOUNTER 2023-04-12 11:05 | Outpatient (CLI) | payer OTHER, SELFPAY ==
[2023-04-12] VITALS (12 sets, daily range): BP systolic 101–121; BP diastolic 61–78; PULSE 82–105
[2023-04-12] MEDS: TERBUTALINE SULFATE 1 MG/ML VIAL 0.25 MG SUB-Q (12:30)
[2023-04-12 13:10] LABS: Appearance Urine Clear (Clear); Bacteria Urine 1+ /hpf; Bilirubin Urine Negative (Negative); Blood Urine Negative (Negative); Color Urine Yellow (Yellow); Glucose Urine UA Negative (Negative); Ketones Urine Negative (Negative); Leukocyte Esterase Ur Trace LEU/UL (NEGATIVE); Nitrate Urine Negative (Negative); Non Pathogenic Casts 0-2; Protein Urine Negative (Negative); RBC Urine 0-2 /hpf (0-2); Specific Grav Ur 1.007 (1.001-1.035); Squamous Epithelial Cell Urine Occasional /hpf (Few); Urobilinogen Urine 0.2 mg/dL (<2.0); WBC Urine 0-5 /hpf (0-3)
[2023-04-12 13:19] LABS: Add Urine Microscopic? YES
--- NOTE | 2023-04-13 06:59 | PM.OBTRLD ---
OB - Triage/Final Diagnosis Visit Information Date of evaluation: 04/12/23 Reason for evaluation: threatened labor Comments/Additional reasons for admission: I have assessed the risk for this patient, Jeremi Alonso, and determined that she would benefit from observation care. Evaluation Laboratory results: Laboratory Tests 04/12/23 12:54 Urine Color Yellow Urine Appearance Clear Urine pH 7.0 Ur Specific [place] 1.007 Urine Protein Negative Urine Glucose (UA) Negative Urine Ketones Negative Ur Blood (Man) Negative Urine Nitrate Negative Urine Bilirubin Negative Urine Urobilinogen 0.2 Ur Leukocyte Esterase Trace H Urine RBC 0-2 Urine WBC 0-5 Ur Squamous Epith Cells Occasional Urine Bacteria 1+ H Urine Casts 0-2 Vital signs: Vital Signs - 24 hr 04/12/23 11:31 04/12/23 11:46 04/12/23 12:01 Pulse Rate 89 93 100 Blood Pressure 119/76 121/78 117/72 04/12/23 12:16 04/12/23 12:31 04/12/23 12:46 Pulse Rate 82 95 96 Blood Pressure 115/72 116/66 116/63 04/12/23 13:00 04/12/23 13:16 04/12/23 13:31 Pulse Rate 90 89 86 Blood Pressure 115/70 112/61 104/62 04/12/23 13:45 04/12/23 14:01 04/12/23 14:12 Pulse Rate 105 H 90 86 Blood Pressure 107/69 101/63
== END 2023-04-12 14:15 | disposition home or self-care (01) ==
LOC: ANHOBOP 11:08 → ANHOBPP 11:08
PROVIDERS: PCP Physician Assistant; Visit Provider Obstetrics & Gynecology
DX: O42.90 Premature rupture of membranes, unspecified as to length of time between rupture and onset of labor, unspecified weeks of gestation (principal); Z3A.00 Weeks of gestation of pregnancy not specified
CPT/HCPCS: 59025; 81001; 84112; 87086; 96372; 99199; J3105

== ENCOUNTER 2023-05-19 04:29 | Inpatient (IN) | payer OTHER, SELFPAY ==
[2023-05-19] VITALS (57 sets, daily range): BP systolic 104–142; BP diastolic 57–95; PULSE 59–123; RESP 16–20; TEMP 36.6–37.2; O2SAT 95–100; BMI 27.2
[2023-05-19 05:25] LABS: Basophils Absolute Auto 0.1 K/mm3 (0.0-0.1); Basophils Percent Auto 0.7 % (0.2-1.2); Eosinophils Absolute Auto 0.1 K/mm3 (0-0.3); Eosinophils Percent Auto 0.7 % (0-4.4); Hematocrit 33.3 % (37.0-47.0); Hemoglobin 10.8 g/dL (12.0-15.0); Immature Granulocyte Percent A 2.7 % (0-0.5); Lymphocytes Absolute Auto 1.85 K/mm3 (0.9-3.2); Lymphocytes Percent Auto 25.2 % (18.3-44.2); Mean Corpuscular HGB Conc 32.4 g/dl (32-36); Mean Corpuscular Hemoglobin 27.1 pg (26-34); Mean Corpuscular Volume 83.7 fl (80-100); Mean Platelet Volume 11.6 fl (7.4-10.4); Monocytes Absolute Auto 0.8 K/mm3 (0.1-0.6); Monocytes Percent Auto 10.9 % (2.6-8.5); Neutrophils Absolute Auto 4.4 K/mm3 (1.3-6.7); Neutrophils Percent Auto 59.8 % (45.5-73.1); Platelet Count Result 197 k/mm3 (150-375); Red Blood Count 3.98 M/mm3 (4.2-5.4); Red Cell Distribution Width 13.1 % (11.5-14.5); White Blood Count 7.3 K/mm3 (4.5-10.0)
[2023-05-19] MEDS: LACTATED RINGERS 500 ML 999 ML IV CONT (05:47)
[2023-05-19] MEDS: ONDANSETRON INJ 4 MG/2 ML VIAL IV PUSH (06:04)
[2023-05-19] MEDS: LACTATED RINGERS 1,000 ML 125 ML IV CONT (06:07)
--- NOTE | 2023-05-19 06:17 | PM.IMHP ---
H&P: HPI History of Present Illness Date/Time: 05/19/23 06:17 Chief Complaint: Term in labor Narrative: this a 22-year-old 2 para 1 whose last menstrual period was in August, EDC is 05/31/2023, confirmed by 10 week ultrasound who presents 38 weeks gestation active labor. She is negative for group B strep in her has been uncomplicated thus far. [facility] Past Medical History Medical History Anxiety and depression GERD (gastroesophageal reflux disease) Over weight and not yet delivered Seizure STD (female) Surgical History Surgical History No pertinent past surgical history Family History Family History Other No pertinent family history Social History Social History Smoking status: Never smoker Substance use: never Lack of Transportation: No Lack of Food: Never True Current Housing: I Have Housing Concerned About Future Housing: No Difficulty Paying Gas/Electric Bills: No Difficulty Paying for Meds: No Currently Unemployed: No Education: High School Diploma/GED Difficulty w/ Childcare or Family Care: No Spiritual care concerns: No Meds Home Medications and Allergies Home Medications Medication Instructions Recorded Confirmed Type valacyclovir 500 mg tablet 500 mg PO DAILY 06/30/21 08/28/21 History Allergies Allergy/AdvReac Type Severity Reaction Status Date / Time No Known Allergies Allergy Verified 11/29/22 14:35 Vital Signs Vital Signs - 24 hr 05/19/23 05:25 05/19/23 05:46 05/19/23 05:47 Pulse Rate 103 H 86 Blood Pressure 142/80 H 114/86 Pulse Oximetry Oxygen Delivery Room Air 05/19/23 05:48 05/19/23 05:49 05/19/23 05:53 Pulse Rate 87 96 Blood Pressure 110/79 118/72 Pulse Oximetry 100 100 Oxygen Delivery 05/19/23 05:55 05/19/23 05:58 05/19/23 06:01 Pulse Rate 100 99 103 H Blood Pressure 120/73 123/76 126/95 H Pulse Oximetry 100 Oxygen Delivery 05/19/23 06:03 10/03/23 06:04 05/19/23 06:08 Pulse Rate 105 H 87 Blood Pressure 132/60 131/57 L Pulse Oximetry 100 100 Oxygen Delivery 05/19/23 06:10 05/19/23 06:13 05/19/23 06:16 Pulse Rate 90 90 90 Blood Pressure 134/69 128/63 134/62 Pulse Oximetry 100 Oxygen Delivery Exam Const: General: cooperative, healthy appearing and comfortable Nutritional Appearance: average body habitus Resp: Effort & Inspection: normal respiratory effort Cardio: Rate: regular rate Rhythm: regular rhythm Heart sounds: S1 normal heart sound present and S2 normal heart sound present GI: Inspection: normal to inspection ( Soft gravid uterus) : External Female Exam: normal external appearance Speculum Exam - Vagina: normal appearance of the vagina Speculum Exam - Cervix: normal appearance of the cervix ( cervix /. AROM clear. FHT is reassuring) H&P: Results Labs Labs: Short CBC 05/19/23 Range/Units 05:20 WBC 7.3 (4.5-10.0) K/mm3 Hgb 10.8 L (12.0-15.0) g/dL Hct 33.3 L (37.0-47.0) % Plt Count 197 (150-375) k/mm3 Assessment and Plan Assessment and plan (1) Term : Code(s): Z34.90 - Encounter for supervision of normal , unspecified, unspecified trimester Status: Acute Plan spontaneous vaginal delivery is expected. Epidural is in and working
--- NOTE | 2023-05-19 06:18 | WPDANESEPP ---
Anes - Eval Pre Procedure Procedure: labor epidural Date/Time: 05/19/23 06:18 Surgeon: lizbeth Preop Diagnosis: pain during labor Pre Op Diagnosis: CONTRACTIONS Patient Data Age: 22 Gender: F Height: 1.63 m Weight: 72 kg Last Vital Signs Pulse 90 05/19/23 06:16 BP 134/62 05/19/23 06:16 Pulse Ox 100 05/19/23 06:13 O2 Del Method Room Air 05/19/23 05:25 Allergies Allergy/AdvReac Type Severity Reaction Status Date / Time No Known Allergies Allergy Verified 11/29/22 14:35 Home Medications Medication Instructions Recorded Confirmed Type valacyclovir 500 mg tablet 500 mg PO DAILY 06/30/21 08/28/21 History Laboratory Tests 05/19/23 05/19/23 05:20 05:21 WBC 7.3 K/mm3 (4.5-10.0) RBC 3.98 L M/mm3 (4.2-5.4) Hgb 10.8 L g/dL (12.0-15.0) Hct 33.3 L % (37.0-47.0) MCV 83.7 fl (80-100) MCH 27.1 pg (26-34) MCHC 32.4 g/dl (32-36) RDW 13.1 % (11.5-14.5) Plt Count 197 k/mm3 (150-375) MPV 11.6 H fl (7.4-10.4) Immature Gran % (Auto) 2.7 H % (0-0.5) Neut % (Auto) 59.8 % (45.5-73.1) Lymph % (Auto) 25.2 % (18.3-44.2) [place] % (Auto) 10.9 H % (2.6-8.5) Eos % (Auto) 0.7 % (0-4.4) Baso % (Auto) 0.7 % (0.2-1.2) Lymph # (Auto) 1.85 K/mm3 (0.9-3.2) [place] # (Auto) 0.8 H K/mm3 (0.1-0.6) Eos # (Auto) 0.1 K/mm3 (0-0.3) Baso # (Auto) 0.1 K/mm3 (0.0-0.1) Abs Immat Gran (auto) 0.20 H K/mm3 (0.00-0.031) Absolute Neuts (auto) 4.4 K/mm3 (1.3-6.7) Absolute Nucleated RBC 0.0 K/mm3 (0.0-0.012) Nucleated RBC % 0.0 % (0.0-0.2) RPR Pending HIV 1&2 Ab/P24 Ag 4thGn Pending Patient hx anesthesia problems: none Family hx anesthesia problems: none Results Review: All pre-operative results and documents have been reviewed as part of the pre-operative evaluation. [facility] Past Medical History Medical History Anxiety and depression GERD (gastroesophageal reflux disease) Over weight and not yet delivered Seizure STD (female) Surgical History Surgical History No pertinent past surgical history Family History Family History Other No pertinent family history Social History Social History Smoking status: Never smoker Substance use: never Lack of Transportation: No Lack of Food: Never True Current Housing: I Have Housing Concerned About Future Housing: No Difficulty Paying Gas/Electric Bills: No Difficulty Paying for Meds: No Currently Unemployed: No Education: High School Diploma/GED Difficulty w/ Childcare or Family Care: No Spiritual care concerns: No Exam Day of Procedure 05/19/23 06:18
[2023-05-19 06:21] LABS: HIV 1/2 Ab P24 Ag Result Negative (Negative)
[2023-05-19] MEDS: OXYTOCIN 30 UNITS/NS 500 ML 30 UNITS/500 ML BAG 999 UNITS IV CONT (08:12)
--- NOTE | 2023-05-19 08:16 | PM.OBPRVD ---
OB - Delivery Note Procedure Delivery date: 05/19/23 Induction method: None Delivery augmentation: Rupture of Membranes Delivery monitor: External FHT Route of delivery: Episiotomy description: None Laceration Description: None Quantitative Blood Loss (ml): 60 Anesthesia type: Epidural Disposition: Floor [place] Baby Date of : 05/19/23 Time of : 08:08 Weeks of gestation at delivery: 38 gender: Male presentation: vertex position: Right Occiput Anterior Placenta delivery description: Spontaneous Cord Vessel Description: 3 Vessels score one minute: 9 score five minutes: 9
[2023-05-19] MEDS: OXYTOCIN 30 UNITS/NS 500 ML 30 UNITS/500 ML BAG 125 UNITS IV CONT (08:47)
[2023-05-19] MEDS: WITCH HAZEL 40 PADS 1 PAD TOPICAL (10:40)
[2023-05-19] MEDS: BENZOCAINE 20% AER SPR (*SP) 56 GM CAN 1 SPRAY TOPICAL (10:40)
--- NOTE | 2023-05-19 10:43 | PC.NURSE ---
Patient transferred to post room #278 via (stretcher ). Support person present. Oriented to unit, room, information board, rooming in, admission packet and security measures. Patient verbalizes understanding.
--- NOTE | 2023-05-19 11:36 | PM.DS ---
DS: Admitting Diagnosis Discharge Date 12/07 Admitting Diagnosis term DS: Discharge Diagnosis Discharge Diagnosis (1) Term : Code(s): Z34.90 - Encounter for supervision of normal , unspecified, unspecified trimester Status: Acute DS: Summary Hospital Course Reason for hospitalization: patient was admitted in active labor at term Hospital Course: she underwent successful spontaneous vaginal delivery 05/19/2023. Hospital course unremarkable. She remained afebrile she was up, voiding without difficulty, eating regular diet, ambulating generally without complaints. Time Spent with Patient Time attestation: Total time spent providing and/or coordinating discharge services: Exam Const: General: cooperative, healthy appearing, comfortable and average body habitus Orientation/consciousness: oriented to person, oriented to place and oriented to time HENMT: Head: normal to inspection Resp: Effort & Inspection: normal respiratory effort Cardio: Rate: regular rate Rhythm: regular rhythm Heart sounds: S1 normal heart sound present and S2 normal heart sound present GI: Inspection: normal to inspection ( Fundus firm below the umbilicus) DS: Data Data Completed and Pending Labs on day of discharge: Labs from last 24 hours 05/19/23 05/19/23 05:21 05:20 WBC 7.3 RBC 3.98 L Hgb 10.8 L Hct 33.3 L MCV 83.7 MCH 27.1 MCHC 32.4 RDW 13.1 Plt Count 197 MPV 11.6 H Immature Gran % (Auto) 2.7 H Neut % (Auto) 59.8 Lymph % (Auto) 25.2 [place] % (Auto) 10.9 H Eos % (Auto) 0.7 Baso % (Auto) 0.7 Lymph # (Auto) 1.85 [place] # (Auto) 0.8 H Eos # (Auto) 0.1 Baso # (Auto) 0.1 Abs Immat Gran (auto) 0.20 H Absolute Neuts (auto) 4.4 Absolute Nucleated RBC 0.0 Nucleated RBC % 0.0 RPR Pending HIV 1&2 Ab/P24 Ag 4thGn Negative Blood Type O Positive Antibody Screen Negative Discharge Plan Discharge Attending physician on discharge: Aniceto Pacheco Discharging Clinician: Aniceto Pacheco Patient Disposition: Home, Self-Care Activity: may shower, no straining and pelvic rest Diet: heart healthy Wound Care Instructions: follow printed instructions Patient Instructions: Antibiotic Form Stand Alone Forms: General Discharge Information Follow-up/Referrals: Aniceto Pacheco MD [Physician] - Discharge Medications: Continued valacyclovir 500 mg tablet 500 mg PO DAILY Date of admission: 05/19/23 04:29 Primary Care Provider: ObduliaJoanie Admitting Provider: Aniceto Pacheco Attending physician on admission: Aniceto Pacheco Condition: Stable
[2023-05-19] MEDS: IBUPROFEN 600 MG TABLET PO (13:04)
[2023-05-19 15:40] LABS: Rapid Plasma Reagin Non-Reactive (NonReactive)
[2023-05-20 00:55] VITALS: BP 84/45; PULSE 56; RESP 14; TEMP 36.7
[2023-05-20] MEDS: IBUPROFEN 600 MG TABLET PO (05:19)
[2023-05-20 05:54] LABS: Hematocrit 29.2 % (37.0-47.0); Hemoglobin 8.9 g/dL (12.0-15.0)
--- NOTE | 2023-05-20 06:50 | PM.OBPNVD ---
OB - PN: Subj Subjective Date/time seen: 05/20/23 06:50 Patient comments: no complaints and pain well controlled baby status: doing well OB - PN: Obj Data Labs 05/20/23 05:16 Labs: Laboratory Results - last 24 hr 05/19/23 05/20/23 05:20 05:16 Hgb 8.9 L Hct 29.2 L RPR Non-reactive OB - PN A/P Plan day: 1 Plan: routine care, discharge home and follow up 6 weeks Comments: begin iron replacement Time Spent With Patient Time: Total time spent is greater than 50% in coordination of care (as documented) at patient's floor/unit and/or counseling patient: Time with patient: less than 15 minutes Exam Const: General: cooperative, healthy appearing and comfortable Nutritional Appearance: average body habitus Orientation/consciousness: oriented to person, oriented to place and oriented to time Resp: Effort & Inspection: normal respiratory effort Cardio: Rate: regular rate Rhythm: regular rhythm Heart sounds: S1 normal heart sound present and S2 normal heart sound present GI: Inspection: normal to inspection ( fundus firm below the umbilicus)
--- NOTE | 2023-05-20 07:00 | PM.OBPNVD ---
OB - PN: Subj Subjective Date/time seen: 05/20/23 07:00 Patient comments: no complaints and pain well controlled baby status: doing well OB - PN: Obj Data Labs 05/20/23 05:16 Labs: Laboratory Results - last 24 hr 05/19/23 05/20/23 05:20 05:16 Hgb 8.9 L Hct 29.2 L RPR Non-reactive OB - PN A/P Plan day: 1 Plan: routine care, discharge home and follow up 6 weeks Time Spent With Patient Time: Total time spent is greater than 50% in coordination of care (as documented) at patient's floor/unit and/or counseling patient: Time with patient: less than 15 minutes Exam Const: General: cooperative, healthy appearing and comfortable Nutritional Appearance: average body habitus Orientation/consciousness: oriented to person, oriented to place and oriented to time HENMT: Head: normal to inspection Resp: Effort & Inspection: normal respiratory effort Cardio: Rate: regular rate Rhythm: regular rhythm Heart sounds: S1 normal heart sound present and S2 normal heart sound present GI: Inspection: normal to inspection
[2023-05-20 07:05] VITALS: BP 112/75; PULSE 59; RESP 16; TEMP 36.6; O2SAT 100
--- NOTE | 2023-05-20 08:33 | WPDANLDPN2 ---
Anes-Prog Note L&D Date/Time: 05/20/23 08:33 Comfortable throughout: labor and delivery Neuraxial method: epidural Epidural/Spinal procedure site: clean & non-tender Neuro status: Neuro function grossly intact. Cardiovascular status: normal Respiratory status: normal Airway patency: baseline Mental status: baseline Post-Op hydration status: normal Vital Signs: Last Vital Signs Temp 97.9 F 05/20/23 07:05 Pulse 59 L 05/20/23 07:05 Resp 16 05/20/23 07:05 BP 112/75 05/20/23 07:05 Pulse Ox 100 05/20/23 07:05 O2 Del Method Room Air 05/19/23 15:35 Pain score (VAS): 0 Post-procedural complaints: none Patient feedback: Patient satisfied with anesthetic care.
[2023-05-20] MEDS: POLYSACCHARIDE IRON COMPLEX 150 MG CAPSULE PO (09:10)
--- NOTE | 2023-05-20 10:09 | PC.NURSE ---
On 05/20/23, the student, Alejandra Luna, provided care and completed [facility] documentation on this patient. I have reviewed the student's documentation and agree with the findings.
== END 2023-05-20 10:40 | disposition home or self-care (01) | DRG 560 ==
LOC: ANHLDR 05:35 → ANHOB2 10:50
PROVIDERS: Admitting Provider Obstetrics & Gynecology; PCP Physician Assistant; Visit Provider Obstetrics & Gynecology
DX: O80 Encounter for full-term uncomplicated delivery (principal); Z37.0 Single live birth; Z3A.38 38 weeks gestation of pregnancy
CPT/HCPCS: 36415; 85014; 85018; 85025; 86592; 86703; 86850; 86900; 86901; A9270; G0432; J2405; J2590; J2795; J7120

== ENCOUNTER 2023-09-07 17:42 | Emergency (ER) | payer OTHER, SELFPAY ==
--- NOTE | ~2023-09-07 | XR_ITS ---
EXAMINATION: XR chest 2V DATE: 09/07/2023 19:42 INDICATION: Right-sided pleuritic chest pain. TECHNIQUE: Frontal and lateral views of the chest were obtained. COMPARISON: CT abdomen 11/29/2022 FINDINGS: There is no pneumonia, pleural effusion, or pneumothorax. The heart size is normal. IMPRESSION: 1. No acute cardiopulmonary disease. Reviewed, dictated and finalized at location E. WORKER
[2023-09-07 17:44] VITALS: BP 110/56; PULSE 86; RESP 16; TEMP 36.7; O2SAT 99
--- NOTE | 2023-09-07 19:11 | ECG_ITS ---
Measurements Intervals [place] Rate: 76 P: 9 IL: 96 QRS: 11 QRSD: 96 T: 55 QT: 377 QTc: 426 Interpretive Statements SINUS RHYTHM WITH SINUS ARRHYTHMIA WITH SHORT [place] INTERVAL DELAYED PRECORDIAL R/S TRANSITION BORDERLINE T WAVE ABNORMALITY- ANTERIOR LEADS BORDERLINE ECG COMPARED TO ECG 09/04/2022 20:43:49 NO SIGNIFICANT CHANGES Electronically Signed On 09-08-2023 6:37:30 COMPOSITION WEATHERBOARD INSTALLER by Harshad Anderson D.O.
[2023-09-07] MEDS: KETOROLAC (*BKC) 60 MG/2 ML VIAL IM (19:35)
--- NOTE | 2023-09-07 20:08 | ED.GENADULT ---
HPI - General Adult General Chief complaint: Unspecified Stated complaint: RUQ pain Time Seen by Provider: 09/07/23 18:09 Source: patient Mode of arrival: ambulatory Limitations: no limitations History of Present Illness HPI narrative: Patient is a 23 y/o female who presents to the ED with c/o R rib pain. Patient reports she has been dealing with an upper respiratory infection for the last several weeks. She was diagnosed with a sinus infection and prescribed Augmentin. She has had a persistent cough. Since , she has had pain in her right side ribs, radiating underneath of her breast around to her lateral chest wall. States pain is worse with movement, coughing, deep breathing. Denies feeling short of breath. Denies anterior chest pain. Denies abdominal pain, nausea, vomiting, fevers. Denies lower extremity pain or swelling, history of blood clots. Related Data Home Medications Medication Instructions Recorded Confirmed valacyclovir 500 mg tablet 500 mg PO DAILY 06/30/21 05/19/23 Allergies Allergy/AdvReac Type Severity Reaction Status Date / Time No Known Allergies Allergy Verified 09/07/23 18:02 Review of Systems Review of Systems: CONSTITUTIONAL: Denies fever, chills, or sweats. CARDIOVASCULAR: See HPI. RESPIRATORY: See HPI. GASTROINTESTINAL: Denies abdominal pain, nausea, vomiting. All systems reviewed & are unremarkable except as noted in HPI and below PMFSH Past Medical History Medical History Anxiety and depression GERD (gastroesophageal reflux disease) Over weight and not yet delivered Seizure STD (female) Surgical History Surgical History No pertinent past surgical history Family History Family History Other No pertinent family history Social History Social History Smoking status: Never smoker Substance use: never Lack of Transportation: No Lack of Food: Never True Current Housing: I Have Housing Concerned About Future Housing: No Difficulty Paying Gas/Electric Bills: No Difficulty Paying for Meds: No Currently Unemployed: No Education: High School Diploma/GED Difficulty w/ Childcare or Family Care: No Spiritual care concerns: No Exam Narrative: GENERAL: Well appearing, well-nourished, non-toxic, in no acute distress. HEAD: Normocephalic, atraumatic. RESPIRATORY: Airway patent, respirations nonlabored. Clear to auscultation bilaterally, no rales, rhonchi, wheezing. No splinting. CARDIOVASCULAR: Regular rate and rhythm without murmurs, rubs, or gallops. ABDOMINAL: Soft, No significant tenderness throughout abdomen. Nondistended. Normoactive BS. MUSCULOSKELETAL: Moves all extremities. No gross deformities. Focal tenderness to palpation along right lower chest wall, extending to lateral ribcage. No palpable deformities. SKIN: Warm, dry, normal color. NEURO: A&O X3. Speech clear. Cranial nerves II-XII grossly intact. Steady gait. No ataxic movements. PSYCHIATRIC: Appropriate mood and affect. Normal interaction. Course Vital Signs Vital signs: Vital Signs Temperature 98.1 F 09/07/23 17:44 Pulse Rate 86 09/07/23 17:44 Respiratory Rate 16 09/07/23 17:44 Blood Pressure 110/56 L 09/07/23 17:44 Pulse Oximetry 99 09/07/23 17:44 Oxygen Delivery Room Air 09/07/23 17:44 Temperature 98.1 F 09/07/23 17:44 Pulse Rate 86 09/07/23 17:44 Respiratory Rate 16 09/07/23 17:44 Blood Pressure 110/56 L 09/07/23 17:44 Pulse Oximetry 99 09/07/23 17:44 Oxygen Delivery Room Air 09/07/23 18:01 Medical Decision Making [facility] Narrative Medical decision making narrative: Patient present ED with several day history of right sided rib pain, recent URI/cough.
[2023-09-07 21:28] VITALS: BP 117/75; PULSE 63; RESP 13; O2SAT 100
== END 2023-09-07 21:30 | disposition home or self-care (01) ==
PROVIDERS: Emergency Provider Physician Assistant; PCP Physician Assistant
DX: R07.81 Pleurodynia (principal); K21.9 Gastro-esophageal reflux disease without esophagitis; E66.3 Overweight; Z68.23 Body mass index [BMI] 23.0-23.9, adult; R94.31 Abnormal electrocardiogram [ECG] [EKG]
CPT/HCPCS: 71046; 93005; 96372; 99283; J1885

== ENCOUNTER 2024-07-09 23:22 | Observation (INO) | payer OTHER, SELFPAY ==
[2024-07-09 23:41] VITALS: BP 117/77; PULSE 102
[2024-07-09 23:46] VITALS: BP 122/75; PULSE 111
[2024-07-10 00:01] VITALS: BP 108/69; PULSE 103
[2024-07-10 00:16] VITALS: BP 117/73; PULSE 139
[2024-07-10 00:31] VITALS: BP 106/67; PULSE 98
[2024-07-10 00:46] VITALS: BP 91/64; PULSE 91
[2024-07-10 00:53] LABS: Add Urine Microscopic? YES; Appearance Urine Clear (Clear); Bacteria Urine None Seen /hpf; Bilirubin Urine Negative (Negative); Blood Urine Negative (Negative); Color Urine Yellow (Yellow); Glucose Urine UA Negative (Negative); Ketones Urine 2+ mg/dL (Negative); Leukocyte Esterase Ur 3+ LEU/UL (Negative); Need Manual Microscopic Reviewed; Nitrate Urine Negative (Negative); Non Pathogenic Casts 0-2; Protein Urine Negative (Negative); RBC Urine 0-2 /hpf (0-2); Specific Grav Ur 1.007 (1.001-1.035); Squamous Epithelial Cell Urine None Seen /hpf (Few); Urobilinogen Urine 0.2 mg/dL (<2.0); WBC Urine 21-50 /hpf (0-3); pH Urine 6.5 (5.0-9.0)
[2024-07-10 01:01] VITALS: BP 115/73; PULSE 93
[2024-07-10 01:15] VITALS: BMI 26.4
[2024-07-10] MEDS: NITROFURANTOIN MONOHYD MACROCR 100 MG CAP PO (01:58)
--- NOTE | 2024-07-18 07:45 | PM.OBTRLD ---
OB - Triage/Final Diagnosis Visit Information Reason for evaluation: threatened labor Comments/Additional reasons for admission: I have assessed the risk for this patient, Jeremi Alonso, and determined that she would benefit from observation care. Evaluation Laboratory results: Laboratory Tests 07/09/24 23:57 Urine Color Yellow Urine Appearance Clear Urine pH 6.5 Ur Specific [place] 1.007 Urine Protein Negative Urine Glucose (UA) Negative Urine Ketones 2+ H Ur Blood (Man) Negative Urine Nitrate Negative Urine Bilirubin Negative Urine Urobilinogen 0.2 Add Ur Microanalysis Reviewed Leukocyte Esterase Rfl 3+ H Urine RBC 0-2 Urine WBC 21-50 H Ur Squamous Epith Cells None seen Urine Bacteria None seen Urine Casts 0-2
== END 2024-07-10 01:58 | disposition home or self-care (01) ==
PROVIDERS: Admitting Provider Obstetrics & Gynecology Gynecology; PCP Physician Assistant; Visit Provider Obstetrics & Gynecology Gynecology
DX: O47.03 False labor before 37 completed weeks of gestation, third trimester (principal); Z3A.33 33 weeks gestation of pregnancy
CPT/HCPCS: 81001; 87077; 87086; 87088; A9270; G0378; G0379

== ENCOUNTER 2024-08-05 22:29 | Observation (INO) | payer OTHER, SELFPAY ==
--- NOTE | ~2024-08-05 | US_ITS ---
EXAMINATION: US OB limited w BPP DATE: 08/06/2024 07:56 INDICATION: Third trimester. TECHNIQUE: Real-time pelvic ultrasound was performed. COMPARISON: None. FINDINGS: There is a single living fetus in vertex presentation. The placenta is left fundal. heart rate is 132 beats per minute (bpm). The amniotic fluid index is 12.6 cm, which is normal. Biophysical profile performed by the technologist: breathing (30 sec sustained breathing in 30 minutes): 2 out of 2 movement (3 gross body movements in 30 minutes): 2 out of 2 tone (one episode of hpiivrt-wsvugsczm-rnbponr limb movement): 2 out of 2 Amniotic fluid pocket (2 cm): 2 out of 2 Total score: 8 out of 8 IMPRESSION: 1. Single living fetus in vertex presentation. 2. Biophysical profile 8 out of 8. Reviewed, dictated and finalized at location A. GER OF TRAINING
[2024-08-05 22:39] VITALS: BP 122/85; PULSE 110
[2024-08-05 22:59] VITALS: BP 126/81; PULSE 106
[2024-08-06] VITALS: BP 108/89; PULSE 108
[2024-08-06] MEDS: LACTATED RINGERS 1,000 ML 999 ML IV CONT (00:24)
[2024-08-06 00:29] VITALS: BMI 28.5
[2024-08-06 00:45] LABS: Add Urine Microscopic? NO; Appearance Urine Clear (Clear); Bilirubin Urine Negative (Negative); Blood Urine Negative (Negative); Color Urine Yellow (Yellow); Glucose Urine UA Negative (Negative); Ketones Urine 1+ mg/dL (Negative); Leukocyte Esterase Ur Negative LEU/UL (Negative); Nitrate Urine Negative (Negative); Protein Urine Negative (Negative); Specific Grav Ur 1.014 (1.001-1.035); Urobilinogen Urine 0.2 mg/dL (<2.0); pH Urine 6.5 (5.0-9.0)
[2024-08-06] MEDS: DEXTROSE 5%/LACTATED RINGERS 1,000 ML 200 ML IV CONT (02:31)
[2024-08-06 02:33] VITALS: BP 125/84; PULSE 93
[2024-08-06 06:18] VITALS: TEMP 36.6
[2024-08-06 07:55] VITALS: BP 122/60; PULSE 88
--- NOTE | 2024-08-06 09:39 | WPDOBADMIT ---
Obstetrics - Admit Note Admission Note: 24 y/o at 37 weeks here with contractions. Also complained of leakage of fluid. RomPlus neg. Contractions have responded to IV hydration. She has had some rare possible variable decelerations on NST, though the tracing is broken and hard to interpret. Those rare possible decelerations occur before and after a reactive Category I tracing. US shows PERI 12 cm and BPP 8/8. She feels much better this morning. She feels good movement. AVSS NST reactive TOCO: rare contractions ABD soft, nontender, gravid, vertex EXT nontender Cervix 3/th per RN. Unchanged. A: IUP at term with false labor. Reassuring status. P: Home with precautions. F/u as scheduled.
== END 2024-08-06 09:11 | disposition home or self-care (01) ==
PROVIDERS: Admitting Provider Obstetrics & Gynecology; PCP Physician Assistant; Visit Provider Obstetrics & Gynecology
DX: O47.1 False labor at or after 37 completed weeks of gestation (principal); Z3A.37 37 weeks gestation of pregnancy
CPT/HCPCS: 76815; 76819; 81003; 96360; 96361; G0378; G0379; J7120; J7121

== ENCOUNTER 2024-08-06 12:19 | Observation (INO) | payer OTHER, SELFPAY ==
[2024-08-06 12:45] VITALS: BP 122/77; PULSE 85
--- NOTE | 2024-08-06 13:35 | LDADM ---
This patient, Jeremi Alonso, was admitted to Labor/Delivery/Recovery 105 on 08/06/24 at 12:19. Plans for labor, pain management and were discussed with patient. Patient/family oriented to hospital policies and general routines including ID bracelet, bed and alarms, visiting hours, pain management, procedures, bathroom and other care routines, personal items, smoking policy, room service/diet and guest tray routines, infant security routines, and visiting hours. Patient/Family are encouraged to report perceived risks to care and to ask questions if they do not understand what they are told or what they should do. See OBIX for further documentation.
[2024-08-06 14:00] VITALS: BP 122/77; PULSE 85
--- OUTSIDE RECORDS SUMMARY | 2024-08-13 18:32 | XMS_ITS | Encounter Summary ---
Author Organization [facility] Address [facility] [place] [address] Care Team Providers Care Conference Reservationist Name Role Phone Gatito Kenyon Primary Care Provider Hanna sousa Reason for Visit * Procedure (Routine) - Closed Specialty Diagnoses / Procedures Referred By Giorgio alfaro Referred To Contact Electrophysiology Procedures CT EEG,AWAKE/DROWSY, W/STIM [address] [id number] Cg Eeg/Emg [address] [place] [id number] Referral ID Status Reason Start Date Expiration Date Visits Re quested Visits Authorized [id number] Closed 04/20/2019 10/17/2019 1 1 Encounter Details Date Type Department Care Team (Latest Contact Info) Description 04/20/2019 10:58 AM CDT - 04/20/2019 1:29 PM CDT Hospital Encounter [address] [address] Gatito Kenyon license in 2017 Discharge Disposition: Home or Self Care Social History Tobacco Use Types Packs/Day Years Used Date Smoking Tobacco: Passive Smo ke Exposure - Never Smoker Smokeless Tobacco: Never Sex and Gender Information Value Date Recorded Sex Assigned at Not on file Gender Identity Not on file Sexual Orientation Not on file documented as of this encounter Medications at Time of Discharge Medication Sig Dispensed Refills Start Date End Date ibuprofen (MOTRIN) 400 MG tablet Take 400 mg by mouth every 6 hours as needed for Pain. 06/05/2020 medroxyPROGESTERone (DEPO-PROVERA) 150 MG/ML vial 04/07/2019 06/05/2020 ranitidine (ZANTAC) 150 MG tablet Take 150 mg by mouth 2 times daily. 06/05/2020 documented as of this encounter Procedure Notes * Wilber Hennessy MD - 04/20/2019 1:29 PM CDTAssociated Order(s): EEG AWAKE AND ASLEEP Images from the original note were not included. Name: Jeremi Alonso CSN: [id number] Type: Routine Date of Test: 04/20/2019 Ordering Provider: Caity Galindo MD and Eric Sloan MD PCP: Gatito Kenyon MD Plywood Patcher: Wilber Hennessy MD Routine EEG Report DESCRIPTION Indication: The EEG is performed in 18 year old 10 month old female for evaluation of epileptiform activity. Background: During the awake state with eyes closed the background consists of 11 Hz posterior dominant rhythm with an amplitude of approximately 40 microvolts which attenuates appropriately with eye opening. The recording is continuous. There is a well-developed anterior-posterior gradient. No significant asymmetries of background activity are noted. With drowsiness, there is waxing and waning of the dominant rhythm with eventual replacement by a mixture of beta, alpha and theta activity. As the patient enters stage II of sleep, symmetrical spindles and vertex sharp waves are present. Arousal is unremarkable There are sharp wave transient notedat T8 during asleep state and they did not have a well formed field or morphology. . Epileptiform activity: No epileptiform activity is noted during the record.. Seizures: There are no seizures noted during the recording. Activation Procedures: Three minutes of adequate hyperventilation does not result in diffuse slowing of the background activity or activation of epileptiform activity. Photic stimulation using a step-alston increase in photic frequency results in driving responses but no activation of epileptiform activity. EKG: A prolonged lead I EKG rhythm strip approximated a heart rate of 70 beats/minute. INTERPRETATION: This EEG recorded in the awake and asleep states is within normal limits for age. CLINICAL CORRELATION The diagnosis of a seizure remains a clinical one. A normal EEG does not exclude this diagnosis. However, there are no epileptiform features in this recording to suggest an underlying diagnosis of epilepsy. Therefore, clinical correlation is recommended. Wilber Hennessy MD Fuel Cell Assembler Child Neurology and Epilepsy [facility] documented in this encounter Plan of Treatment Not on file documented as of this encounter Procedures Procedure Name Priority Date/Time Associated Diagnosis Comments EEG AWAKE AND ASLEEP Routine 04/20/2019 1:29 PM CDT documented in this encounter Results * EEG AWAKE AND ASLEEP (04/20/2019 1:29 PM CDT) Narrative [facility] MEDQUIST - 04/20/2019 1:29 PM CDT Wilber Hennessy MD ? 04/22/2019 ??3:55 PM Name: Jeremi Alonso CSN: [id number] Type: Routine Date of Test: 04/20/2019 Ordering Provider: Caity Galindo MD and Eric Sloan MD PCP: Gatito Kenyon MD Plywood Patcher: Wilber Hennessy MD Routine EEG Report DESCRIPTION Indication: The EEG is performed in 18 ??year old 10 ??month old female for evaluation of epileptiform activity. Background: During the awake state with eyes closed the background consists of 11 Hz posterior dominant rhythm with an amplitude of approximately 40 microvolts which attenuates appropriately with eye opening. ??The recording is continuous. ??There is a well-developed anterior-posterior gradient. No significant asymmetries of background activity are noted. With drowsiness, there is waxing and waning of the dominant rhythm with eventual replacement by a mixture of beta, alpha and theta activity. As the patient enters stage II of sleep, symmetrical spindles and vertex sharp waves are present. Arousal is unremarkable There are sharp wave transient noted at T8 during asleep state and they did not have a well formed field or morphology. . Epileptiform activity: No epileptiform activity is noted during the record.. Seizures: There are no seizures noted during the recording. Activation Procedures: Three minutes of adequate hyperventilation does not result in diffuse slowing of the background activity or activation of epileptiform activity. Photic stimulation using a step-alston increase in photic frequency results in driving responses but no activation of epileptiform activity. EKG: A prolonged lead I EKG rhythm strip approximated a heart rate of 70 beats/minute. INTERPRETATION: This EEG recorded in the awake and asleep states is within normal limits for age. CLINICAL CORRELATION The diagnosis of a seizure remains a clinical one. A normal EEG does not exclude this diagnosis. However, there are no epileptiform features in this recording to suggest an underlying diagnosis of epilepsy. ??Therefore, clinical correlation is recommended. Wilber Hennessy MD Fuel Cell Assembler Child Neurology and Epilepsy [facility] Wilber Hennessy MD NEUROLOGY ORDERA BLES [facility] documented in this encounter Visit Diagnoses Not on filedocumented in this encounter Care Teams Conference Reservationist Relationship Specialty Start Date End Date Gatito Kenyon PCP - General Pediatrics 10/03/14 06/04/20 documented as of this encounter
--- OUTSIDE RECORDS SUMMARY | 2024-08-13 18:32 | XMS_ITS | Encounter Summary ---
Author Organization [facility] Address [facility] [facility] [place] [address] Care Team Providers Care Serging Machine Operator Automatic Name Role Phone Unavailable Primary Care Provider Unavailabl e Encounter Details Date Type Department Care Team (Late st Contact Info) Description 06/20/2020 10:00 AM POWER NUT RUNNER OPERATOR Office Visit [facility] [id number] [place] [id number] Provider, Emile Exp Nameoki PPD screening test (Primary Dx) Social History Tobacco Use Types Packs/Day Years Used Date Smoking Tobacco: Passive Smo ke Exposure - Never Smoker Smokeless Tobacco: Never Sex and Gender Information Value Date Recorded Sex Assigned at Not on file Gender Identity Not on file Sexual Orientation Not on file COVID-19 Exposure Response Date Recorded In the last month, have you been in contact with someone who was confirmed or suspected to have Coronavirus / COVID-19? No / Unsure 06/20/2020 9:22 AM POWER NUT RUNNER OPERATOR documented as of this encounter Progress Notes * Crissy Edwards APRN-CNP - 06/22/2020 5:00 PM CST 06/22/2020 Jeremi Alonso returns to clinic today for TB (PPD) reading. 0 mm of induration noted, negative reading. Copy of the results were given to patient and scanned into the medical record. No further issues or concerns today. CLIF [place] 06/22/2020 5:00 PM R NUT RUNNER OPERATOR * Archana Gandhi APRN-CNP - 06/20/2020 9:30 AM CST Images from the original note were not included. PPD Placement note: Jeremi Alonso presents to the [facility] for placement of a TB screening (PPD) test Reason for PPD test: school She taken PPD test before: yes Allergies verified. Patient denies allergy to any component of the Tubersol derivatives. The TB screening questionnaire reviewed with patient, signed, and scanned into the medical record.The patient is alert and oriented in no acute distress. PPD placed on right FOREARM using Mantoux TB test technique. Patient tolerated well. Patient advised to return for reading within 48-72 hours, failure to do so will result in an invalid test. Archana Gandhi DNP, CONTRACT CLERK [employer] 06/20/2020 9:56 AM R NUT RUNNER OPERATOR documented in this encounter Plan of Treatment Not on file documented as of this encounter Procedures Procedure Name Priority Date/Time Associated Diagnosis Comments SKIN TEST PPD - POINT OF CARE Routine 06/22/2020 5:00 PM POWER NUT RUNNER OPERATOR PPD screening test documented in this encounter Results * SKIN TEST PPD - POINT OF CARE (06/22/2020 5:00 PM POWER NUT RUNNER OPERATOR) PPD 0 mm Other MISCELLANEOUS SAMPLE S / Unknown 06/22/2020 5:00 PM POWER NUT RUNNER OPERATOR [facility] - POINT OF CARE ORDERABLES documented in this encounter Visit Diagnoses Diagnosis PPD screening test- Primary Screening examination for pulmonary tuberculosis documented in this encounter Administered Medications Administered Medications Medication Order MAR Action Action Date Dose Rate Site PPD Intradermal Given 06/20/2020 0.1 mL Right Forearm documented in this encounter
--- OUTSIDE RECORDS SUMMARY | 2024-08-13 18:32 | XMS_ITS | Clinical Summary ---
Author Organization [facility] Address [address] [place] [address] Care Team Providers Care Ecmo Specialist Name Role Phone Unavailable Primary Care Provider Unavailabl e Source Comments [facility],non-owned Affiliates and Associated Physician Practices is amultiple site organization consisting of ambulatory clinics and hospital sitesin [place], [place], [place] and [place]. This disclosure is being madepursuant to the Care Everywhere program and may not contain all information available regarding this patient. Last updated 18.[facility] Parse Allergies No known active allergies Medications * Be aware that medications may not be up to date on this document. Alwaysverify current medications with the patient. Medication Sig Dispensed Refills Start Date End Date Status Omeprazole (PRILOSEC PO) Active valACYclovir HCl (VALTREX PO) Active Active Problems Problem Noted Date Diagnosed Date Postural orthostatic tachycardia syndrome 2018 Overview (04/20/2019): First event, Mid-October: Prior to event was in her usual state of health, on her way to second period, though fell asleep during class. Jeremi was walking down the hallway, felt nauseous and like she was in a tunnel and like things were zooming in . Jeremi threw up into a trash can, then lost consciousness for an unknown period of time, though Jeremi feels it wasn't long. This was witnessed by students, though not clear if there was any shaking, woke up sitting on a chair against the wall. Does report she felt sleepy for the rest of the day. Second event, February: Jeremi had gone camping with boyfriend and his family. No sleep deprivation but didn't eat dinner the previous night. Jeremi had just woken up and was walking toward the tent from a camper, then felt tunnel vision and lost consciousness. Witnessed by boyfriend's mother, noted to be shaking for a few seconds before falling to the ground. Though no further description of event. Events were discussed with primary doctor, who referred to [facility]. Migraine without aura and wi th status migrainosus, not intractable 04/20/2019 Overview (04/20/2019): Headaches first started around age 13. Jeremi will have stretches where she will have 4-6 headaches in a month, then around a month without a headaches. No specific time of day, though are more common during the summer months. No fluctuation with periods. During long stretches of headaches she will occasionally have headaches waking her up from sleep. Headache Description: Known triggers include being in the heat. Not preceded by aura, pain originiates more frequently bitemporally and occasionally radiates to the forehead. Pain is described as at times dull, at times stabbing and tight. and rated at between a 3-10/10. ( + ) photophobia, ( + ) phonophobia. Other associated symptoms include nausea, vomiting. Headaches have never been associated with focal deficits, tearing / flushing of face, developmental developmental regression, or seizures. Headaches will usually dunia after an hour or so with ibuprofen, but can last as long as several days, during which time she will need to be taken to the emergency room for a migraine cocktail. Headache medications: Prior medications used for headache: ?imitrex vs sumatriptan nasal spray. Current prophylactic medications: None Current abortive medications: Ibuprofen (1-2 times per week). Headache Hygeine / Lifestyle: Jeremi Dobbins drinks little water but 4-6 large cups of tea per day. Typically eats breakfast, sometimes lunch but usually dinner. She doesn't do any daily school activities but is fairly active throughout the day. On weekdays Jeremi Dobbins goes to bed at around 21:30, falls asleep shortly thereafter. Wakes up at 10:00 (total 10-12 hours). On Weekends she goes to bed at 00:00, wakes up at 11:00-12:00 (total 12 hours). Family does report faint snoring but no gasps for breath. Caffeine intake: - Servings of Soda's per day: none - Servings of Tea per day: 2-3 Litres per day. - Servings of Coffee per day: none - Other Caffeine: none Total days missed of school in past 3 months due to headache: 1-3 Pertinent History: Relevant Past Medical History: Patellar-femoral knee pain - seen by ortho in 2014, minimal problems now Family history of headaches: Father - was on Imitrex but no longer History of trauma: none Recent infections: none Assessment & Plan (04/20/2019 4:53 PM CDT): Assessment: Episodes of dizziness are most consistent with syncope (likely orthostatic). HR rise of 40 BPM without commensurate decrease in BP is suggestive of Posterior orthostatic tachycardia syndrome. Given this it is very likely that the events in question are syncope rather than seizures. My preliminary review of the EEG is normal, which is also reassuring. Headaches most consistent with mixed tension-type headache as well as migraine without aura. At present there aren't sufficient warning signs to warrant additional imaging (if headaches persist for days they can wake patient up from sleep), though would consider this if symptoms significantly worsen or other warning signs occur. The treatment for both orthostatic syncope and her headache symptoms at this point is very similar in that she should increase hydration and avoid skipping meals. Naproxen can be tried to see if this helps better than ibuprofen, but at this time daily medication isn't indicated until she has tried improving lifestyle risk factors. If this is the case my likely first choices would be Riboflavin +/- combined with magnesium gluconate. Plan: - Consider trial of naproxen over ibuprofen - Follow headache lifestyle modifications - Maintain an active lifestyle with at least 30 minutes of exercise a day. - Eat a healthy diet and do not skip any meals. - Adequate hydration and avoidance of caffeine. - Maintain a good sleep routine with regular bed times and avoidance of distractions (TV, tablet/phone, computer) - OK to use OTC PRN pain medication, but limit to <4 doses per week. 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 Observing for now. Witnessed seizure-like activity 04/19/2019 Head ache 04/19/2019 Family History Medical History Relation Name Comments Migraine Father Relation Name Status Comments Father Social History Tobacco Use Types Packs/Day Years Used Date Smoking Tobacco: Passive Smo ke Exposure - Never Smoker Smokeless Tobacco: Never Sex and Gender Information Value Date Recorded Sex Assigned at Not on file Gender Identity Not on file Sexual Orientation Not on file Last Filed Vital Signs Vital Sign Reading Time Taken Comments Blood Pressure 110/70 06/05/2020 4:27 PM CDT Pulse 95 06/05/2020 4:27 PM CDT Temperature 36.8 ??C (98.2 ??F) 06/05/2020 4:27 PM CD T Respiratory Rate 14 06/05/2020 4:27 PM CDT Oxygen Saturation 98% 06/05/2020 4:27 PM CDT Inhaled Oxygen Concentration - - Weight 63.5 kg (140 lb) 06/05/2020 4:27 PM CDT Height 162.6 cm (5' 4 ) 06/05/2020 4:27 PM CDT Body Mass Index 24.03 06/05/2020 4:27 PM CDT Plan of Treatment Health Maintenance Due Date Last Done Comments PAP SMEAR 2001 HIV SCREENING 2016 HPV VACCINE (1 - 3-dose series) 2016 CHLAMYDIA/GONORRHEA SCREENING 2017 HEPATITIS C SCREENING 06/10/2019 DTAP/TDAP/TD VACCINES (1 - Tdap) 2020 HEPATITIS B VACCINE (1 of 3 - 19+ 3-dose series) 2020 DEPRESSION SCREENING 08/17/2023 COVID-19 VACCINE (1 - 2023-2 5 season) 2024 INFLUENZA VACCINE (#1) 2024 ZOSTER VACCINE (1 of 2) 2051 HIB VACCINE Aged Out No longer eligi ble based on patient's age to complete this topic MENINGOCOCCAL VACCINE Aged Out No nena elizabeth eligible based on patient's age to complete this topic PNEUMOCOCCAL VACCINE Aged Out No long er eligible based on patient's age to complete this topic SHAYLA DOBBINS Personal/Family Other [address] [place] [address]
--- OUTSIDE RECORDS SUMMARY | 2024-08-13 18:32 | XMS_ITS | Encounter Summary ---
Author Organization [facility] Address [address] [place] [address] [place] [address] Care Team Providers Care Nursing Informatics Specialist Name Role Phone Unavailable Primary Care Provider Unavailabl e Encounter Details Date Type Department Care Team (Latest Contact Info) Description 06/05/2020 Travel Social History Tobacco Use Types Packs/Day Years [...] have Coronavirus / COVID-19? No / Unsure 06/05/2020 12:40 PM CDT documented as of this encounter Plan of Treatment Not on file documented as of this encounter Visit Diagnoses Not on filedocumented in this encounter
--- OUTSIDE RECORDS SUMMARY | 2024-08-13 18:32 | XMS_ITS | Patient Health Summary ---
Author Organization [facility] Address [address] [place] [address] Care Team Providers Care Multineedle Shirrer Name Role Phone Unavailable Primary Care Provider Unavailabl e Note from [facility],non-owned Affiliates and Associated Physician Practices is amultiple site organization consisting of ambulatory clinics and hospital sitesin [place], [place] and [place]. This disclosure is being madepursuant to the Care Everywhere program and may not contain all information available regarding this patient. Last updated 18.[facility] Allergies No known active allergies Medications * Be aware that medications may not be up to date on this document. Alwaysverify current medications with the patient. 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 PPD 0 mm Other MISCELLANEOUS SAMPLE S / Unknown 06/22/2020 5:00 PM REGISTRATION REP Archana Gandhi APRN-HEALTHCARE FACILITY ADMINISTRATOR LAB - POINT OF CARE ORDERABLES * EEG AWAKE AND ASLEEP (04/20/2019 1:29 PM CDT) Narrative [facility] - 04/20/2019 1:29 PM CDT Wilber Hennessy MD ? 04/22/2019 ??3:55 PM Name: Jeremi Alonso CSN: [id number] Type: Routine Date of Test: 04/20/2019 Ordering Provider: Caity Galindo MD and Eric Sloan MD PCP: Gatito Kenyon MD Computer System Validation Specialist: Wilber Hennessy MD Routine EEG Report DESCRIPTION [...] clinical correlation is recommended. Wilber Hennessy MD Animal Care Specialist Child Neurology and Epilepsy [facility] Wilber Hennessy MD NEUROLOGY ORDERA [facility]
--- OUTSIDE RECORDS SUMMARY | 2024-08-13 18:32 | XMS_ITS | Encounter Summary ---
Author Organization [facility] Address [address] [place] [address] Care Team Providers Care Cosmetic Account Coordinator Name Role Phone Gatito Kenyon Primary Care Provider Hanna sousa Reason for Visit * Reason Comments Pain Knee bilateral Encounter Details Date Type Department Care Team (Late st Contact Info) Description 10/06/2014 1:21 PM LATHE OPERATOR CONTACT LENS - 10/06/2014 11:59 PM LATHE OPERATOR CONTACT LENS Hospital Encounter [facility] Pediatrics - Orthopedics [address] [place] [address] Thor Villarreal MD [address] [facility] [place] [address] Discharge Disposition: Home or Self Care Social History Tobacco Use Types Packs/Day Years Used Date Smoking Tobacco: Never Assessed Sex and Gender Information Value Date Recorded Sex Assigned at Not on file Gender Identity Not on file Sexual Orientation Not on file documented as of this encounter Last Filed Vital Signs Vital Sign Reading Time Taken Comments Blood Pressure - - Pulse - - Temperature - - Respiratory Rate - - Oxygen Saturation - - Inhaled Oxygen Concentration - - Weight 51.1 kg (112 lb 9.6 oz) 10/06/2014 1:22 P M LATHE OPERATOR CONTACT LENS Height 158.8 cm (5' 2.5 ) 10/06/2014 1:22 PM LATHE OPERATOR CONTACT LENS Body Mass Index 20.27 10/06/2014 1:22 PM LATHE OPERATOR CONTACT LENS Body Mass Index Percentile 66.69% 10/06/2014 1:2 2 PM LATHE OPERATOR CONTACT LENS Growth Chart: CDC (Girls, 2- 20 Years) documented in this encounter Discharge Instructions * Patient Instructions* Thor Villarreal MD - 10/06/2014 1:55 PM LATHE OPERATOR CONTACT LENS Images from the original note were not included. [facility] Department of Orthopaedic Surgery Adult and Pediatric Sports Medicine Orthopaedic Sports Medicine Clinic Discharge Form MD Sly Morrowfeliciano Francois Gavin 10/06/2014 Thank you for coming in to see us today for your bilateral knee pain. This is a school excuse note for today. We recommend that you try the following to help you heal and feel better: icing 20 minutes at a time, 3 to 5 times daily, physical therapy exercises and anti-inflammatory medications Please call our clinic to make an appointment if your symptoms are not improving, or if something about your condition significantly changes. [facility] Orthopaedic office contact information: [facility] [address] [place] [address]. [id number] [facility] 2nd Floor, [address] [place] [address] [address] [address] [facility] ([facility]) or [address] [place] [id number] [facility] [address] [place] [address] [address] [address] Please contact Corey Mccrary (clinical nurse specialist) at or email: [email or web address] if you have any further questions or concerns. E OPERATOR CONTACT LENS documented in this encounter Medications at Time of Discharge Medication Sig Dispensed Refills Start Date End Date ibuprofen (MOTRIN) 400 MG tablet Take 400 mg by mouth every 6 hours as needed for Pain. 06/05/2020 ranitidine (ZANTAC) 150 MG tablet Take 150 mg by mouth 2 times daily. 06/05/2020 documented as of this encounter Progress Notes * Thor Villarreal MD - 10/06/2014 2:31 PM CST Images from the original note were not included. Thor Villarreal MD ORTHOPAEDIC SPORTS MEDICINE [facility] [facility] [address] Dept: [phone] Gatito Kenyon ; Today we had the pleasure of seeing Jeremi Alonso in [facility] for evaluation of her left .The pain is anterior and around the knee cap and without trauma. It has been present for 1 year or so. She notes the pain off an on and comes 1-2/month. She also notes occasional swelling. She notes the pain come usually after activities but doeshave it sometimes without.The symptoms are improved with rest. No fevers, chills, numbness, paresthesias or gross motor weakness. They have tried icing 20 minutes at a time, 3 to 5 times daily, physical therapy exercises and anti-inflammatory medications for their symptoms. She did PT for 4 weeks focusing on knee strengthening only. She has not done PT exercises since formal PT sessions. SANE Score (0-100): 65 Medications No current outpatient prescriptions on file prior to encounter. No current facility-administered medications on file prior to encounter. Allergies as of 10/06/2014 ??? (No Known Allergies) No past medical history on file. No past surgical history on file. 15 Point review of systems was otherwise negative as reviewed today. Social History Occupational History ??? Not on file. Social History Main Topics ??? Smoking status: Not on file ??? Smokeless tobacco: Not on file ??? Alcohol Use: Not on file ??? Drug Use: Not on file ??? Sexual Activity: Not on file Family History No family history on file. Physical Exam: The patient is awake, alert, oriented and they are pleasant to speak with. There is no pain with rotation of the right or left hip. There is a negative straight leg raise bilaterally. Gait is normal. The right knee is neurovascularly intact with no active skin lesions. There is no effusion. There is tenderness of the knee cap today. Range of motion is unrestricted . Librado is negative. Quad strength is 5/5. There is no varus laxity. There is no valgus laxity. There is no posterior sag. McMurrays test is negative. Dial test is negative. The extensor mechanism is intact. The patellar tracks well. Patellar apprehension test is negative. Testing for generalized ligamentous laxity is negative. The left knee is neurovascularly intact with no active skin lesions. There is no effusion. There istenderness around the kneecap. Range of motion is unrestricted . Librado is negative. Quad strengthis 5/5. There is no varus laxity. There is no valgus laxity. There is no posterior sag. McMurrays test is negative. Dial test is na. The extensor mechanism is intact. The patellar tracks well. Patellar apprehension test is negative. Testing for generalized ligamentous laxity is negative. Imaging: left knee X-rays images from [facility] dated 09/12/14 reviewed by me are normal. Impression: bilateral patellofemoral knee pain, left > right Plan: We recommended that they try the following to treat their injury: icing 20 minutes at a time, 3 to 5 times daily, physical therapy exercises and anti- inflammatory medications. We specified the importance of hip rotation on patella tracking and specific exercises for this. She is to continue to do these at home as home. During flare up she should ice and take antiinflammatories. Otherwise, she is activities as tolerated without restrictions. She should follow up on a PRN basis. Please do not hesitate to contact me with questions regarding her or any other patient in the future. Our clinical nurse, Corey Mccrary, can be reached at and by email at [email or web address]. My personal email is [email or web address]. Sincerely, Thor Villarreal MD E OPERATOR CONTACT LENS * Viridiana Zaidi M - 10/06/2014 1:23 PM CST Pt here today for bilateral knee pain. Sxs one year. Pt have pain on and off. Dad states that pt get puffy right above both knees when there is a flare up. Pt states during a flare up pt have troublewalking due to pain. Dad states swelling and pain is random, however sometimes happens after pt hasbeen roller skating or jumping on the trampoline. Pt has X-rays. E OPERATOR CONTACT LENS documented in this encounter Plan of Treatment Not on file documented as of this encounter Visit Diagnoses Diagnosis Knee pain, left- Primary Pain in joint, lower leg documented in this encounter Care Teams Cosmetic Account Coordinator Relationship Specialty Start Date End Date Gatito Kenyon PCP - General Pediatrics 10/03/14 06/04/20 documented as of this encounter
--- OUTSIDE RECORDS SUMMARY | 2024-08-13 18:32 | XMS_ITS | Encounter Summary ---
Author Organization [facility] Address [facility] [place] [address] Care Team Providers Care Cylinder Head Assembler Name Role Phone Unavailable Primary Care Provider Unavailabl e Reason for Visit * Reason Comments PPD Skin Test Placement Complete Physical Exam Encounter Details Date Type Department Care Team (Late st Contact Info) Description 06/05/2020 4:00 PM CDT Office Visit [facility] AT [address] [phone] Provider, Emile Pavon [facility] physical exam (Primary Dx); PPD screening test Social History Tobacco Use Types Packs/Day Years [...] PM CDT documented as of this encounter Last Filed [...] Mass Index 24.03 06/05/2020 4:27 PM CDT Body Mass Index Percentile 74.22% 06/05/2020 4:2 7 PM CDT Growth Chart: [facility] (Girls, 2- 20 Years) documented in this encounter Progress Notes * Crissy Edwards APRN-CNP - 06/08/2020 4:18 PM CDT 06/08/2020 Jeremi Alonso returns to clinic today for TB (PPD) reading. 0 mm of induration noted, negative reading. Copy of the results were given to patient and scanned into the medical record. No further issues or concerns today. CLIF Ovalle 06/08/2020 4:18 PM * Archana Gandhi APRN-CNP - 06/05/2020 5:52 PM CDT Images from the original note were not included. PPD Placement note: Jerem[facility] for placement of a TB screening (PPD) test Reason for PPD test: school She taken PPD test before: yes Allergies verified. Patient denies allergy to any component of the Tubersol derivatives. The TB screening questionnaire reviewed with patient, signed, and scanned into the medical record.The patient is alert and oriented in no acute distress. PPD placed on left FOREARM using Mantoux TB test technique. Patient tolerated well. Patient advised to return for reading within 48-72 hours, failure to do so will result in an invalid test. Arcahna Gandhi DNP, BENEDICT-SANDRA 06/05/2020 5:52 PM * Archana Gandhi APRN-CNP - 06/05/2020 4:08 PM CDT Images from the original note were not included. Subjective: Jeremi Alonso is a 19 year old female patient, She present today for college physical. Medications reviewed. Outpatient Medications Marked as Taking for the 06/05/20 encounter (Office Visit) with Provider, Emile Exp Nameoki Medication Sig ??? Omeprazole (PRILOSEC PO) ??? valACYclovir HCl (VALTREX PO) No Known Allergies Past Medical History: Diagnosis Date ??? GERD (gastroesophageal reflux disease) ??? Herpes Past Surgical History: Procedure Laterality Date ??? Hemorrhoidectomy Social History Socioeconomic History ??? Marital status: Single Spouse name: Not on file ??? Number of children: Not on file ??? Years of education: Not on file ??? Highest education level: Not on file Occupational History ??? Not on file Social Needs ??? Financial resource strain: Not on file ??? Food insecurity Worry: Not on file Inability: Not on file ??? Transportation needs Medical: Not on file Non-medical: Not on file Tobacco Use ??? Smoking status: Passive Smoke Exposure - Never Smoker ??? Smokeless tobacco: Never Used Substance and Sexual Activity ??? Alcohol use: Not on file ??? Drug use: Not on file ??? Sexual activity: Not on file Lifestyle ??? Physical activity Days per week: Not on file Minutes per session: Not on file ??? Stress: Not on file Relationships ??? Social connections Talks on phone: Not on file Gets together: Not on file Attends spiritism service: Not on file Active member of club or organization: Not on file Attends meetings of clubs or organizations: Not on file Relationship status: Not on file ??? Intimate partner violence Fear of current or ex partner: Not on file Emotionally abused: Not on file Physically abused: Not on file Forced sexual activity: Not on file Other Topics Concern ??? Not on file Social History Narrative HEADS assessment obtained 04/20/19 H - Lives at home with mother, father, and 16 year old brother Sánchez Deal - Just started senior year, last year had A's, B's and C, and one F. A - For fun likes to do family days (bowling, walking trails) D - Sampled alcohol ( it tasted horrible ), no nicotine, Marijuana, or other illicit drug use. S - identifies as heterosexual female, total 2 sexual partners, uses condoms occasionally but is onDepo-Provera. S - overall in good spirits. Never had thoughts of hurting self or others. Social History Tobacco Use Smoking Status Passive Smoke Exposure - Never Smoker Smokeless Tobacco Never Used She denies use of steroids, other performance, or recreational drugs. Review of Systems Do you have pain that bothers you in your daily life? no Do you feel stressed out or under a lot of pressure? no Do you ever feel sad, hopeless, depressed, or anxious? no Do you feel safe at your home or residence? yes Constitutional: Negative for fatigue, fevers, chills, malaise. Eyes: Positive for glasses or contacts, Negative for double vision, glaucoma, color blindness Ears, nose, mouth, and throat: Negative for vertigo, frequent URI's, sinus trouble, persistent sorethroat, dental problems, congestion Respiratory: Negative for shortness of breath, dyspnea on exertion, chronic cough, wheezing Cardiovascular: Negative for palpitations, tachycardia, irregular heart beat, near-syncope, syncope, exertional chest pain or pressure, lower extremity edema Gastrointestinal: Negative for poor appetite, nausea, vomiting, abdominal pain, epigastric pain, stomach or duodenal ulcer, change in bowel habits. Positive for acid reflux well controlled with medication Genitourinary:Negative for dysuria and vaginal discharge Skin: Negative for rash, dark lesion(s), changed mole, new lesion, itching, lumps or bumps Breast: Negative Hematologic/lymphatic: Negative for anemia, bleeding disorder, swollen nodes, petechia, blood clots Musculoskeletal:Negative for joint swelling, joint redness, joint pain, back pain, fibromyalgia, muscle weakness, muscle pain Neurological: Negative for dizziness, syncope, gait problems, paralysis/weakness, speech impairment, balance problem, memory problem. Positive for hx of migraine headaches, hx of seizure x2- followedby neurology. No restrictions Behavioral/Psych: Negative for depressed mood, anxiety, suicidal or homicidal ideation Endocrine: Negative for thyroid nodule, polydipsia, polyuria, diabetes, hypothyroidism, hyperthyroidism Objective: BP 110/70 Pulse 95 Temp 98.2 ??F (36.8 ??C) Resp 14 Ht 1.626 m (5' 4 ) Wt 63.5 kg (140 lb) SpO2 98%BMI 24.03 kg/m2 Exam General appearance: alert, cooperative, no distress, oriented to person, place, and time, well appearing Head: normocephalic, without trauma Eyes: sclera and conjunctiva clear, EOMI and PERRLA, lids normal Ears: bilateral ear canals clear, tympanic membranes normal, hearing intact to voice Nose: nares open; no septal deviation is noted, nasal mucosa without inflammation Mouth: lips, mucosa, and tongue normal; teeth and gums normal Throat: Uvula midline, no erythema, exudates, masses, or lesions. Tonsils unremarkable Neck: supple, range of motion is intact, no masses, thyroid not enlarged, no adenopathy Nodes: no cervical, axilla, or supraclavicular adenopathy Back: no deformity or tenderness, range of motion is intact. No CVA tenderness. Chest: no tenderness Breasts: exam not performed Lungs: breath sounds normal and symmetric; no rales or wheezes. Good aeration Heart: regular rate and rhythm, normal S1 and S2, without murmurs, gallops or rubs. Abdomen: soft without mass, non-tender, with normal bowel sounds. No organomegaly. : exam not performed (negative screening) Extremities: no clubbing, cyanosis or edema Circulation: pedal pulses are intact and symmetrical, aorta is not enlarged; Radial pulses intact and symmetric. Capillary refill is brisk. Joints: ranges of motion normal without inflammation, effusion or deformity Skin: warm, dry, and intact. No rashes or other abnormalities are noted Musculoskeletal: bilateral hand spectroscopist 5/5 and equal; bilateral arm and leg strength 5/5 with normaltone; Normal gait and station. Neurologic: mental status normal; alert and oriented X 3; cranial nerves II - XII are grossly intact. Deep tendon reflexes are symmetrical and intact. Psychiatric: mood, memory, affect, and judgment normal. Functional assessment: -Able to reach overhead Yes -Climb stairs Yes -Ability to squat/bend/kneel without difficulty Yes -Ability to sit/stand, walk, and move about without difficulty Yes Any limitations: No, if yes-they are listed below: Assessment: Encounter Diagnosis Name Primary? School physical exam Yes Plan: Patient cleared for employment without restrictions. Physical form signed, scanned into chart, and returned to patient. Continue yearly PCP, dental, and eye exams. Follow up as needed for acute illness. Archana Gandhi DNP, CONCRETE SAW OPERATOR-BC 06/05/2020 5:52 PM documented in this encounter Plan of Treatment Not on file documented as of this encounter Procedures Procedure Name Priority Date/Time Associated Diagnosis Comments SKIN TEST PPD - POINT OF CARE Routine 06/08/2020 4:17 PM CDT PPD screening test documented in this encounter Results * SKIN TEST PPD - POINT OF CARE (06/08/2020 4:17 PM CDT) PPD 0 mm Other MISCELLANEOUS SAMPLE S / Unknown 06/08/2020 4:17 PM CDT [facility] - POINT OF CARE ORDERABLES documented in this encounter Visit Diagnoses Diagnosis School physical exam- Primary Health examination of defined subpopulation PPD screening test Screening examination for pulmonary tuberculosis documented in this encounter Administered Medications Administered Medications Medication Order MAR Action Action Date Dose Rate Site PPD Intradermal Given 06/05/2020 0.1 mL Left Forearm documented in this encounter
--- OUTSIDE RECORDS SUMMARY | 2024-08-13 18:32 | XMS_ITS | Encounter Summary ---
Author Organization [facility] Address [address] [place] [address] Care Team Providers Care Emergency Medicine Nurse Practitioner Name Role Phone Gatito Kenyon Primary Care Provider Hanna sousa Reason for Visit * Reason Comments Seizure Seizure episode on J wanda 5th,has lightheadedness and headaches but no other events. EEG today Encounter Details Date Type Department Care Team (Latest Contact Info) Description 04/20/2019 1:30 PM CDT - 04/20/2019 11:59 PM CDT Hospital Encounter [facility] Pediatrics - Neurology [address] [place] [address] Caity Galindo MD [address] [place] [address]. RO[address] [place] [address] Discharge Disposition: Home or Self Care Social [...] - Inhaled Oxygen Concentration - - Weight 56.5 kg (124 lb 9 oz) 04/20/2019 1:43 PM CDT Height 163.4 cm (5' 4.33 ) 04/20/2019 1:43 PM CD T Body Mass Index 21.16 04/20/2019 1:43 PM CDT Body Mass Index Percentile 49.35% 04/20/2019 1:4 3 PM CDT Growth Chart: CDC (Girls, 2- 20 Years) documented in this encounter Discharge Instructions * Patient Instructions* Eric Sloan MD - 04/20/2019 2:57 PM CDT - Your EEG today looks normal. This, combined with the description of events are most suggestive oforthostatic syncope rather than seizures. These are often improved by increasing food, water, and salt intake - Your headaches are more suggestive of mixed tension-type headaches and migraine without aura - Keep a headache diary as this can help identify certain triggers and patterns to headaches. - Maintain an active lifestyle with at least 30 minutes of exercise a day. - Eat a healthy diet and do not skip any meals. - Drink plenty of water and try to avoid caffeine regularly. About 8 glasses of water or 64 oz a day is a good goal. - Maintain a good sleep routine and try to avoid distractions before bedtime such as watching TV, using a tablet/phone, or being on the computer. Try to put these away at least 30 minutes prior to a scheduled bedtime. Try to get at least 8-10 hours of sleep a night. - Do not use pain medication (whether prescribed or over the counter) more than 3-4 times a week asthis can sometimes worsen headaches in the alf. - Follow up in 4 months, but call in 4-8 weeks should headaches persist or worsen and we can discuss further management over the phone. Event Calendar Instructions: 1. Fill in the Month, Year and all the dates. 2. If headaches or syncopal spells occur, write down the number of each you experienced that day. 3. Sign your name below Name: Month: Year: Thursday Month: Year: Thursday Syncope (Fainting Spells) Definition Syncope if the medical term for fainting. Syncope has a variety of causes, most of which are benign(not life-threatening). Occasionally syncope is caused by neurologic problems, such as a seizure orunusual migraine headache. However, you have probably been sent to the [facility]oles[facility] Psychiat[facility] because your doctor was concerned about a cardiac cause of syncope. There are two causes of syncope that can be dueto the heart and blood vessels. The first is due to a rhythm abnormality such as the heart rate being too slow or too fast. This is the least common cause in children, but it is much more common in adults with coronary artery disease or following heart attacks. The second cause, which is more than 90% of syncope in children, is due to transient irregularities in the involuntary or automatic nervous system causing low blood pressure, low blood flow to the brain resulting in fainting, syncope, orloss of consciousness. This is the body's normal response to low blood pressure. Lying down is an effective means of preventing and treating syncope. Blood that has pooled in the legs in the upright position is now able to return to the heart. How It Is Diagnosed To determine whether you have a rhythm abnormality your physician will obtain an EKG. You may also have a 24 hour holter monitor (24 hour EKG) placed, other monitoring tests, or an echocardiogram. Generally, the EKG in combination with the details that you provide are enough to decide whether you have a neurologic cause, a rhythm related cause, or the common benign autonomic form of syncope. Occasionally a Tilt test may be recommended. How It Occurs The common benign form of syncope is called neurally mediated syncope. However, it may be referred to by other names such as: cardiogenic, vasovagal, vasodepressor, simple faint, temple syndrome, or a breath holding spell. The typical mechanism for neurally mediated syncope is an inappropriate relaxation of the blood vessels and lowering of the heart rate leading to low blood pressure at a time when the body needs constriction of the blood vessels and a higher heart rate and blood pressure. These inappropriate changes in the heart and blood vessels are due to an irregularity in the control of the autonomic or involuntary nerves, which carry signals from the heart and blood vessels to the brain. The brain's control of these involuntary signals is confused and the brain inappropriately withholds the activity of the sympathetic autonomic nervous system when it should be activating it. The result is an inappropriate decrease in blood pressure and fainting. Treatment There are many ways to treat this common form of syncope and most can be done without drugs or medical intervention. There are three basic types of therapy: hydration, recognition, and antigravity maneuvers. If these treatments fail, there are a number of medications which may be used for neurally mediated syncope. Hydration: Staying well hydrated is the most effective way of preventing both dizziness and fainting spells. ?? Eliminate beverages with caffeine. Caffeine tends to over stimulate the heart and make fainting problems worse. If you drink large amounts of caffeine beverages, eliminate them slowly over a period of 1-2 weeks to avoid excessive tiredness, headaches, and depression. Avoid coffee, tea, and caffeinated soda. ?? Monitor your hydration by examining your urine color and frequency. When you are well hydrated, your urine color will be clear and you will urinate more frequently. If you are poorly hydrated, your urine color will be dark yellow and you will not urinate as frequently. You can improve your hydration by drinking beverages that contain salt or sugar; such as: Gatorade, Sprite, Tabatha Misty, etc. Drink 12-16 ounces of these beverages just before periods of exercise. ?? Finally avoid a low salt diet. Recognition: The most important step in avoiding syncope is to recognize the symptoms which occur just prior to syncope. You may have all of the symptoms or only a few, but it is unusual to have no symptoms prior to fainting. ?? Symptoms include: dizziness or light headedness, sweating, nausea, buzzing in the ears, spinning, and seeing a pale or russell color that is not physically there. Antigravity Maneuvers: The purpose of these maneuvers is to reduce the effect of gravity on the blood and your body. [place] tends to pull the blood down to the veins in your legs and organs in your abdomen. As soon as you recognize the early signs of syncope, you should begin these maneuvers. ?? The best is to lie down on your back with your knees bent. If you cannot lie down, you can get into a squat position. ?? A subtle but less effective maneuver is to cross the legs while standing in place and tense the abdominal muscles. ?? Another maneuver is to place one foot on a stool or chair while the other remains on the ground. documented in this encounter Medications at Time [...] as of this encounter Progress Notes * Eric Sloan MD - 04/20/2019 1:37 PM CDT Images from the original note were not included. Pediatric Neurology Clinic new Visit Patient Name: Jeremi Alonso : 2000 Date of Encounter: 04/20/2019 I had the pleasure of seeing your patient, Jeremi in the Neurology Clinic at [facility]. She was accompanied by her Mother and Father. Jeremi is a 18 year old female presenting as new patient for evaluation of seizure-like activity. Problem Postural Orthostatic Tachycardia Syndrome First event, Mid-October: Prior to event was [...] No sleep deprivation but didn't eat dinner theprevious night. Jeremi had just woken up and was walking toward the tent from a camper, then felt tunnel vision and lost consciousness. Witnessed by boyfriend's mother, noted to be shaking for a few seconds before falling to the ground. Though no further description of event. Events were discussed with primary doctor, who referred to [facility]. Migraine Without Aura and With Status Migrainosus, Not Intractable Headaches first started around age 13. Jeremi will have stretches where she will have 4-6 headaches in a month, then around a month without a headaches. No specific time of day, though are more common during the summer months. No fluctuation with periods. During long stretches of headaches she will oc casionally have headaches waking her up from sleep. [...] have never been associated with focal deficits, te aring / flushing of face, developmental developmental regression, [...] per week). Headache Hygeine / Lifestyle: Jeremi Alonso drinks little water but 4-6 large cups of tea per day. Typically eats breakfast, sometimes lunch but usually dinner. She doesn't do any daily school activities but is fairly active throughout the day. 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 Observing for now. Past Medical History Medical History: No past medical history on file., Surgical History: No past surgical history on file., Family history: Family History Problem Relation Age of Onset ??? Migraine Father and Social History: Social History Social History Narrative HEADS assessment obtained 04/20/19 [...] had thoughts of hurting self or others. Current Medications ??? ibuprofen (MOTRIN) 400 MG tablet Take 400 mg by mouth every 6 hours as needed for Pain. ??? medroxyPROGESTERone (DEPO-PROVERA) 150 MG/ML vial ??? ranitidine (ZANTAC) 150 MG tablet Take 150 mg by mouth 2 times daily. Allergies No Known Allergies Review of Systems Review of Systems Constitutional: Negative for chills and fever. HENT: Negative for hearing loss and tinnitus. Eyes: Negative for blurred vision, double vision and photophobia. Respiratory: Negative for cough. Cardiovascular: Negative for chest pain and palpitations. Gastrointestinal: Negative for constipation, diarrhea, nausea and vomiting. Genitourinary: Negative for dysuria. Musculoskeletal: Negative for myalgias and neck pain. Skin: Negative for rash. Neurological: Positive for dizziness, loss of consciousness and headaches. Negative for tingling, sensory change, speech change, focal weakness and seizures. Endo/Heme/Allergies: Does not bruise/bleed easily. Vital Signs Height: Height: 163.4 cm (5' 4.33 ) Weight: Weight: 56.5 kg (124 lb 9 oz) 45 %ile (Z= -0.13) based on CDC (Girls, 2- 20 Years) eislln-tet-peg data using vitals from 04/07/2019 from contact on 04/14/2019. Orthostatic Readings: Lying: Pulse 60, BP 108/56 Sitting: Pulse 68, BP 108/56 Standing: Pulse 100, BP 102/60 Development See HPI and social history Labs No new labs Imaging No Nervous system imaging available at this time. Physical Exam General: well developed, well nourished CV: RRR Resp: CTAB Abdomen: S, NT, BS+ Extr: No edema, +2 pulses Neurological Exam: MS: awake, alert, appropriate. Normal mood, affect and speech. Cranial Nerves: II: Visual rosenthal intact Fundus: mild pallor of left optic disc, otherwise normal. III:PERRLA III,IV,: EOMI V: Facial sensation intact and symmetric VII: Facial expressions symmetric VIII: Hearing intact to finger rub bilaterally IX: Palate elevates symmetrically X: Uvula midline XI: Shoulder shrug strong bilaterally XII: Tongue protrudes midline Motor: Abnormal Movements: none Bulk: normal Tone: normal Reflexes: 2+ throughout, plantar reflex downgoing Strength: 5/5 in all extremities Sensory: Intact to light touch, temperature and vibration Cerebellar: Normal FNF, FRIEDA's, no dysdiadochokinesia, steady in Romberg stance Gait: Normal toe/heel/tandem walk No scoliosis. No [place]'s. Assessment and Plan Migraine without aura and with status migrainosus, not intractable Assessment: Episodes of dizziness are most consistent [...] Naproxen can be tried to see if thishelps better than ibuprofen, but at this time [...] counter) more than 3-4 times a week asthis can sometimes worsen headaches in the alf. Follow-Up Return in about 4 months (around 08/20/2019). Eric Sloan MD This patient was staffed with and examined by attending Caity Galindo MD. CC: Gatito Kenyon MD [address] [facility] [id number] Date: 04/20/2019 4:58 PM Associated attestation - Caity Galindo MD - 04/21/2019 3:51 PM CDT Attending Note: I saw and examined the patient with the Fellow and agree with their findings. Briefly, Jeremi Alonso is a 18 year old girl who presents with episode concerning for seizure. PMH: Patellar femoral pain syndrome. She has had 2 episodes of seizure like activity and migraine without aura. First episode in October 2018, She got up from her chair and walking and felt nauseated and things were zooming in, threw up and lost consciousness. This was witnessed by students however no description available. Unsure how long. She was tired and fatigued for the rest of the day. Did not eat breakfast that morning. On February 17 weekend was out camping and sleeping in a camper and woke up and started walking and felt light headed and dizzy. She noted jerking of her body for several seconds after she felt to the ground. She was groggy for a couple of hours. No family history of seizures. No trauma and no drug abuse. Family history of migraines. Normal development from a cognitive standpoint. Regarding headaches which started at age 13. They fluctuate in frequency so 4-5 episodes in a monthand then no headaches next month. They occur bitemporally and radiates at times towards forehead. Photophobia, phonophobia and nausea and sometimes dizziness. Typically last 1-2 hours. Minor ones aredull and significant ones and dull and tight. At times with severe ones she may wake up in the middle of night. Had had a visit to the ER for migraine cocktail. No paresthesias or weakness during these. No autonomic features. Ibuprofen and imitrex as abortive therapy. Average of 1-2 per month. Lifestyle: increased tea drinker (2-3 liters). Almost never east breakfast and usually skips lunch. Not a ctive in sports. Usually 9-11 hours of sleep. Snoring is faint. Increased screen time. Exam is intact with patient alert, oriented to self, place, time. Comprehension intact. Fundi are unremarkable other then some mild pallor on the left concerning for pseudopapilledema. Speech is fluent. PERRLA. EOMI. CN 2-12 intact. Strength 5/5 B/L. DTR 2+ symmetric. Sensations intact to LT/PP/Vib/Temp. No dysmetria. Able to tandem, toe and heel walk. Discussed with parents that with a normal EEG and episodes which are concerning more for she orthostatic syncope v/s POTS. Increase water and increase salt intake and also compression stocking. If this does not help then will consider starting Florinef (HR change of 40 from lying to standing). She is getting migraines without aura and at times tension type headache. Lifestyle modifications discussed. Naproxen for severe headaches.Discussed pseudopapilledema likely in left eye, however we will continue to monitor this at this time. Follow up in 4 months. Caity Galindo MD Pediatric Neurologist/Epileptologist documented in this encounter Plan of Treatment Not on file documented as of this encounter Visit Diagnoses Diagnosis Postural orthostatic tachycardia syndrome- Primary Tachycardia, unspecified Migraine without aura and without status migrainosus, not intractable Migraine without aura, without mention of intractable migraine without mention of status migrainosus * Assessment & Plan Note - Eric Sloan MD - 04/20/2019 3:05 PM CDT Associated Problem(s): Migraine without aura and with status migrainosus, not intractable Assessment: Episodes of dizziness are most consistent [...] Naproxen can be tried to see if thishelps better than ibuprofen, but at this time [...] counter) more than 3-4 times a week asthis can sometimes worsen headaches in the intermediate designer. documented in this encounter Care Teams Emergency Medicine Nurse Practitioner Relationship Specialty Start Date End Date Gatito Kenyon PCP - General Pediatrics 10/03/14 06/04/20 documented as of this encounter
--- OUTSIDE RECORDS SUMMARY | 2024-08-13 18:32 | XMS_ITS | Encounter Summary ---
Author Organization [facility] Address [address] [place] [address] [place] [address] Care Team Providers Care Carton Forming Machine Operator Name Role Phone Unavailable Primary Care Provider Unavailabl e Encounter Details Date Type Department Care Team (Latest Contact Info) Description 06/20/2020 Travel Social History Tobacco Use Types Packs/Day [...] COVID-19? No / Unsure 06/20/2020 9:22 AM MARKETING INFORMATION MANAGER documented as of this encounter Plan of Treatment Not on file documented as of this encounter Visit Diagnoses Not on filedocumented in this encounter
--- OUTSIDE RECORDS SUMMARY | 2024-08-13 18:32 | XMS_ITS | Referral Summary ---
Author Organization [facility] Address [address] [place] [address] Care Team Providers Care Shipfitter Helper Name Role Phone Unavailable Primary Care Provider Unavailabl e Source Comments [facility],non-owned Affiliates and Associated Physician Practices is amultiple site organization consisting of ambulatory clinics and hospital sitesin [place], [place], [place] and [place]. This disclosure is being madepursuant to the Care Everywhere program and may not contain all information available regarding this patient. Last updated 18.[facility] [employer] Allergies No known active allergies Medications * [...] this can sometimes worsen headaches in the intermodal truck driver. Pseudopapilledema of left optic disc 04/20/2019 Overview [...] 06/05/2020 4:27 PM CDT Plan of Treatment Not on file Administered Medications SHAYLA DOBBINS Personal/Family Other [address] [place] [address]
--- OUTSIDE RECORDS SUMMARY | 2024-08-13 18:33 | XMS_ITS | Referral Summary ---
Author Organization [address] Address [address] [place] [address] Care Team Providers Care Lands Resource Manager Name Role Phone Joanie Steiner Primary Care Provider [phone] Allergies No known active allergies Medications PNV #[id number] acid-dha 35 mg iron-5 mg iron-1 mg capsule Take by mouth daily Active valACYclovir (VALTREX) 1 gram tablet Take 1 tablet (1,000 mg total) by mouth 2 (two) times a day Active Active Problems No known active problems Social History Tobacco Use Types Packs/Day Years Used Date Smoking Tobacco: Never Assessed Comments Unknown Sex and Gender Information Value Date Recorded Sex Assigned at Not on file Legal Sex Female 10:58 AM CDT Gender Identity Not on file Sexual Orientation Not on file Last Filed Vital Signs Vital Sign Reading Time Taken Comments Blood Pressure 118/68 01/24/2023 5:38 PM CDT Pulse 78 01/24/2023 5:38 PM CDT Temperature 36.5 ??C (97.7 ??F) 01/24/2023 5:38 PM CD T Respiratory Rate 18 01/24/2023 5:38 PM CDT Oxygen Saturation 98% 01/24/2023 5:38 PM CDT Inhaled Oxygen Concentration - - Weight 63.5 kg (140 lb) 01/24/2023 5:38 PM CDT Height 162.6 cm (5' 4 ) 01/24/2023 5:38 PM CDT Body Mass Index 24.03 01/24/2023 5:38 PM CDT Plan of Treatment Not on file Insurance [facility] Member Subscriber Plan / Payer ( fective 2021-Present) Name:Jeremi Alonso Relation to Subscriber:Self Name:Jeremi Alonso Payer ID:[id number] (NAIC) Type:MEDICAID RISK OTHER Address: [place] [id number] Care Teams Lands Resource Manager Relationship Specialty Start Date End Date Joanie Steiner PA [address] [place] [id number] PCP - General Physician Marketing Coordinator 01/24/23
--- OUTSIDE RECORDS SUMMARY | 2024-08-13 18:33 | XMS_ITS | Encounter Summary ---
Author Organization [facility] Address [address] [address] Care Team Providers Care Carrier Driver Name Role Phone Joanie Steiner Primary Care Provider [phone] Reason for Visit * Reason Onset Date Comments Test Results 01/26/2023 Encounter Details Date Type Department Care Team (Late st Contact Info) Description 01/26/2023 Telephone [facility] [address] [place] [address] Colleen Aparicio MA Test Results Social History Tobacco Use Types Packs/Day Years Used Date Smoking Tobacco: Never Assessed Comments Unknown Sex and Gender Information Value Date Recorded Sex Assigned at Not on file Legal Sex Female 10:58 AM CDT Gender Identity Not on file Sexual Orientation Not on file documented as of this encounter Miscellaneous Notes * Telephone Encounter - Colleen Aparicio MA - 01/26/2023 9:18 AM CDT Patient is aware of urine culture results and has no further questions at this time. * Telephone Encounter - Colleen Aparicio MA - 01/26/2023 9:17 AM CDT ----- Message from OCHOA Gonzáles sent at 01/26/2023 7:56 AM CDT ----- Please advise patient of normal urine culture, see PCP if not better, thanks documented in this encounter Plan of Treatment Not on file documented as of this encounter Visit Diagnoses Not on filedocumented in this encounter Care Teams Carrier Driver Relationship Specialty Start Date End Date Joanie Steiner PA [address] [place] [address] PCP - General Physician Postal Sorting Officer 01/24/23 documented as of this encounter
--- OUTSIDE RECORDS SUMMARY | 2024-08-13 18:33 | XMS_ITS | Clinical Summary ---
Author Organization [address] Address [address] [place] [address] Care Team Providers Care Transmission Systems Operator Name Role Phone Joanie Steiner Primary Care Provider [phone] Allergies No known active allergies Medications PNV #[id number] acid-dha 35 mg iron-5 mg iron-1 mg [...] on file Sexual Orientation Not on file Obstetrics History Last Filed Vital Signs Vital Sign Reading [...] 01/24/2023 5:38 PM CDT Plan of Treatment Health Maintenance Due Date Last Done Comments Cervical Cancer Screening 2001 Depression Screening 2000 Hepatitis C Screening 2001 Meningococcal B Vaccine (2 of 2 - Risk Bexsero 2-dose series) 06/03/2019 05/06/2019 Regular Well Visit/Exam 18-64 2019 Influenza Vaccine (#1) 2024 06/05/2020, 2014 DTaP/Tdap/Td Vaccine (8 - Td or Tdap) 07/04/2031 07/04/2021, 02/04/2013, 03/17/2007, Additional history exists Pneumococcal vaccine <65 Aged Out 01/01/2002, 07/19 No longer eligible based on patient's age to complete this topic HPV Vaccines Completed 05/09/2016, 12/16, 09/25/2015 Varicella Vaccines Completed 06/02/2016, 07/07/2002 Insurance [facility] Care Teams Transmission Systems Operator Relationship Specialty Start Date End Date Joanie Steiner PA [address] [place] [address] PCP - General Physician [employer] Crew Boss 01/24/23
--- OUTSIDE RECORDS SUMMARY | 2024-08-13 18:33 | XMS_ITS | Encounter Summary ---
Author Organization [facility] Address [address] [facility] [address] [place] [id number] Care Team Providers Care Chief Design Engineer Name Role Phone Joanie Steiner Primary Care Provider [phone] Reason for Visit * Reason Comments Urinary Symptom 3 days of lower back pain and lower abdominal pain. Abdominal pain was worse yesterday evening. Concerned for UTIPt also having nosebleeds...3 times in past 2 days. Pt is 22 weeks . Encounter Details Date Type Department Care Team ([facility] st Contact Info) Description 01/24/2023 5:30 PM CDT Office Visit [facility] [address] [place] [id number] Cathi Lazo NP [address] [facility] [place] [address] Acute right-sided low back pain without sciatica (Primary Dx); Urinary tract infection symptoms; Frequent nosebleeds Social History Tobacco Use Types Packs/Day Years [...] Mass Index 24.03 01/24/2023 5:38 PM CDT documented in this encounter Patient Instructions * Patient Instructions* Cathi Lazo NP - 01/24/2023 5:30 PM CDT Urine culture ordered Follow up with OBGYN if symptoms worsen, you develop any abdominal cramping, worsening low back pain, decreased movement,fevers, or urinary symptoms. documented in this encounter Ordered Prescriptions Prescription Sig Dispense Quantity Refills Last Filled Start Date End Date cephalexin (KEFLEX) 500 mg capsule Take 1 capsule (500 mg total) by mouth 2 (two) times a day for 7 days 14 capsule 01/24/2023 3 documented in this encounter Progress Notes * Cathi Lazo NP - 01/24/2023 5:30 PM CDT Images from the original note were not included. Subjective/Objective Patient ID: Jeremi Alonso is a 22 y.o. female. Chief Complaint Urinary Symptom (3 days of lower back pain and lower abdominal pain. Abdominal pain was worse yesterday evening. Concerned for UTI/Pt also having nosebleeds...3 times in past 2 days. Pt is 22 weeks .) Patient presents to [facility] for low back pain x3 days. She states that the pain is on her right side and does not radiate. She denies any known injury. She is 22 weeks . 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 The pain is constant. She rates her pain a 3/10. She notes that last week she had pelvic discomfort when urinating. It has since resolved. Also, she states 3 days ago she felt a sharp pain in her stomach that lasted a few seconds but then resolved. She is not had any pain in her stomach since. Also, she notes that she is hadmultiple nosebleeds recently. She states she is had 3 nosebleeds in the past 2 days. The nosebleedsresolve on their own. They are not accompanied with any headache or severe pain. She has been taking OTC Tylenol for her symptoms. She denies any blood in urine, dysuria, abdominal pain, cramping, chills, or fevers. She reports good movement. Review of Systems Constitutional: Negative for chills, diaphoresis, fatigue and fever. HENT: Positive for nosebleeds. Respiratory: Negative for chest tightness and shortness of breath. Cardiovascular: Negative for chest pain. Gastrointestinal: Negative for nausea and vomiting. Genitourinary: Negative for difficulty urinating, dysuria, flank pain, frequency, hematuria, urgency, vaginal bleeding, vaginal discharge and vaginal pain. Musculoskeletal: Positive for back pain. Neurological: Negative for dizziness, weakness and headaches. Psychiatric/Behavioral: Negative for confusion. Physical Exam Vitals reviewed. Constitutional: Appearance: Normal appearance. She is well-developed. She is not ill-appearing. HENT: Head: Normocephalic. Mouth/Throat: Mouth: Mucous membranes are moist. Pharynx: Oropharynx is clear. Cardiovascular: Rate and Rhythm: Normal rate and regular rhythm. Pulmonary: Effort: Pulmonary effort is normal. Breath sounds: Normal breath sounds. Abdominal: General: Abdomen is flat. Bowel sounds are normal. There is no distension. Palpations: Abdomen is soft. There is no hepatomegaly or splenomegaly. Tenderness: There is no abdominal tenderness. There is no right CVA tenderness or left CVA tenderness. Musculoskeletal: General: Normal range of motion. Lumbar back: Normal. No swelling, tenderness or bony tenderness. Normal range of motion. Skin: General: Skin is warm and dry. Neurological: Mental Status: She is alert and oriented to person, place, and time. Mental status is at baseline. Psychiatric: Mood and Affect: Mood normal. Behavior: Behavior normal. Behavior is cooperative. Thought Content: Thought content normal. Judgment: Judgment normal. Vitals: 01/24/23 1738 BP: 118/68 Pulse: 78 Resp: 18 Temp: 36.5 ??C (97.7 ??F) TempSrc: Temporal SpO2: 98% Weight: 63.5 kg (140 lb) Height: 162.6 cm (5' 4 ) Assessment/Plan UA cloudy, small leukocytes No ABX ordered today Urine culture ordered Exam WNL Encouraged use of a belly band while working to help with back pain Also discussed importance of proper footwear and compression stockings Tylenol as needed for pain Discussed with patient that nosebleeds are common in due to an increase in blood volume. Discussed that she should discuss nosebleeds with OBGYN if they persist Go to the ER if you develop any abdominal pain, cramping, worsening low back pain, decrease in movement, or nosebleeds that lasts longer than 30 minutes Follow-up with OBGYN on Thursday Diagnoses and all orders for this visit: Acute right-sided low back pain without sciatica (Primary) Urinary tract infection symptoms - POCT urinalysis dipstick - Urine culture Urine, clean voided; Future Frequent nosebleeds Recent Results (from the past 4 hour(s)) POCT urinalysis dipstick Collection Time: 01/24/23 5:49 PM Result Value Ref Range Color, Urine, POC Light Yellow Clarity, ur, POC Cloudy (A) Clear Glucose, ur, POC Negative Negative MG/DL Bilirubin, ur, POC Negative Negative, Small, Moderate, Large Ketones, ur, POC Negative Negative Specific [place], POC 1.015 1.003 - 1.030 Blood, ur, POC Negative Negative pH, ur, POC 7.0 5.0 - 8.0 Protein, ur, POC Negative Negative Urobilinogen, urine, POC 0.2 0.2 - 1.0 mg/dL Nitrite, ur, POC Negative Negative Leukocytes, ur, POC Small (A) Negative Lot Number [id number] Patient Education: Disposition Treatment plan including expectations, follow up, and return precautions discussed with patient/parent, verbalizes understanding. Medication dosage, use, and potential adverse reactions discussed with patient/parent. Advised to follow up with PCP if symptoms do not resolve as expected or sooner if condition worsens. Signs/symptoms warranting ER evaluation reviewed. Patient and/or guardian was given an opportunity to ask questions, questions answered. Cathi Lazo NP documented in this encounter Plan of Treatment Not on file documented as of this encounter Procedures Procedure Name Priority Date/Time Associated Diagnosis Comments POCT URINALYSIS DIPSTICK Routine 01/24/2023 5:49 PM CDT Urinary tract infection symptoms documented in this encounter Results * Urine culture Urine, clean voided (01/24/2023 10:19 PM CDT) Report Final Report: No growth YOSHI HENSLEY Comment:Testing performed by : [facility], [address] [place]., [address] Urine, clean voided 01/24/2023 10:19 PM CDT 01/25/2023 4:09 AM CDT Narrative YOSHI HENSLEY - 01/26/2023 6:34 AM CDT Testing performed by [facility] Microbiology Laboratory ([phone]) us Cathi Lazo NP LAB MICROBIOLOGY - GENERAL ORDER SHAY Final Result YOSHI [id number] Department [place] [address] * (ABNORMAL) POCT urinalysis dipstick (01/24/2023 5:49 PM CDT) Color, Urine, POC Light Yellow Clarity, ur, POC Cloudy(A) Clear Glucose, ur, POC Negative Negative MG/DL Bilirubin, ur, POC Negative Negative, Small, Moderate, Large Ketones, ur, POC Negative Negative Specific [place], POC 1.015 1.003 - 1.030 Blood, ur, POC Negative Negative pH, ur, POC 7.0 5.0 - 8.0 Protein, ur, POC Negative Negative Urobilinogen, urine, POC 0.2 0.2 - 1.0 mg/dL Nitrite, ur, POC Negative Negative Leukocytes, ur, POC Small(A) Negative Lot Number [id number] Urine 01/24/2023 5:49 PM CDT Cathi Lazo MERCHANDISE PLANNING MANAGER POINT OF CARE TEST ORDERABLES Fi nal Result documented in this encounter Visit Diagnoses Diagnosis Acute right-sided low back pain without sciatica- Primary Urinary tract infection symptoms Frequent nosebleeds Urinary tract infection symptoms documented in this encounter Discontinued Medications Medication Sig Discontinue Reason Start Date End Da te cephalexin (KEFLEX) 500 mg capsule Take 1 capsule (500 mg total) by mouth 2 (two) times a day for 7 days Error 01/24/2023 01/24/2023 documented as of this encounter Historical Medications * This list may reflect changes made after this encounter. valACYclovir (VALTREX) 1 gram tablet Take 1 tablet (1,000 mg total) by mouth 2 (two) times a day PNV #[id number] acid-dha 35 mg iron-5 mg iron-1 mg capsule Take by mouth daily added in this encounter Care Teams Chief Design Engineer Relationship Specialty Start Date End Date Joanie Steiner PA [address] [place] [id number] PCP - General Physician Ambulette Driver 01/24/23 documented as of this encounter
--- OUTSIDE RECORDS SUMMARY | 2024-08-13 18:33 | XMS_ITS | Encounter Summary ---
Author Organization [facility] Healthcare Address [address] [place] [id number] Care Team Providers Care Observation Nurse Name Role Phone Joanie Steiner Primary Care Provider Encounter Details Date Type Department Care Team (Latest Contact Info) Description 01/24/2023 5:39 PM CDT - 01/24/2023 11:59 PM CDT Hospital Encounter [address] [address] Urinary tract infection symptoms Discharge Disposition: Discharge to home or self care Social History Tobacco Use Types Packs/Day Years Used Date Smoking Tobacco: Never Assessed Comments Unknown Sex and Gender Information Value Date Recorded Sex Assigned at Not on file Legal Sex Female 10:58 AM CDT Gender Identity Not on file Sexual Orientation Not on file documented as of this encounter Medications at Time of Discharge PNV #[id number] acid-dha 35 mg iron-5 mg iron-1 mg capsule Take by mouth daily valACYclovir (VALTREX) 1 gram tablet Take 1 tablet (1,000 mg total) by mouth 2 (two) times a day documented as of this encounter Discharge Disposition Disposition Code Departure Means Destination Discharge to home or self care documented in this encounter Miscellaneous Notes * Result Encounter Note - Colleen Aparicio MA - 01/24/2023 11:59 PM CDT Patient is aware of urine culture results and has no further questions at this time. documented in this encounter Plan of Treatment Not on file documented as of this encounter Procedures Procedure Name Priority Date/Time Associated Diagnosis Comments URINE CULTURE Routine 01/24/2023 10:19 PM CDT Urinary tract infection symptoms documented in this encounter Results * Urine culture Urine, clean voided (01/24/2023 10:19 PM CDT) Report Final Report: No growth YOSHI HENSLEY Comment:Testing performed by : [facility], [address] [place]., [address] Urine, clean voided 01/24/2023 10:19 PM CDT 01/25/2023 4:09 AM CDT Narrative YOSHI HENSLEY - 01/26/2023 6:34 AM CDT Testing performed by [facility] Microbiology Laboratory ([phone]) us Cathi Lazo NP LAB MICROBIOLOGY - GENERAL ORDER SHAY Final Result YOSHI HENSLEY [id number] Department [place] [address] documented in this encounter Visit Diagnoses Diagnosis Urinary tract infection symptoms documented in this encounter Care Teams Observation Nurse Relationship Specialty [place] [address] [place] [id number] PCP - General Physician Purchasing Manager/Sales 01/24/23 documented as of this encounter
--- NOTE | 2024-08-26 11:24 | PM.OBTRLD ---
OB - Triage/Final Diagnosis Visit Information Comments/Additional reasons for admission: I have assessed the risk for this patient, Jeremi Francois Racquelyaya, and determined that she would benefit from observation care. Final Diagnosis (1) Spotting affecting : Code(s): O26.859 - Spotting complicating , unspecified trimester Status: Acute
--- NOTE | 2024-09-05 11:22 | PM.OBTRLD ---
OB - Triage/Final Diagnosis Visit Information Comments/Additional reasons for admission: I have assessed the risk for this patient, Jeremi Hughesannamarieyaya, and determined that she would benefit from observation care. Final Diagnosis (1) Vaginal spotting: Code(s): N93.9 - Abnormal uterine and vaginal bleeding, unspecified Status: Acute
== END 2024-08-06 14:15 | disposition home or self-care (01) ==
LOC: ANHLDR 08-08 07:29
PROVIDERS: Admitting Provider Obstetrics & Gynecology; PCP Physician Assistant; Visit Provider Obstetrics & Gynecology
DX: O26.859 Spotting complicating pregnancy, unspecified trimester (principal); Z3A.00 Weeks of gestation of pregnancy not specified
CPT/HCPCS: 59025; 76815; 76819; 81003; 96360; 96361; G0378; G0379; J7120; J7121

== ENCOUNTER 2024-08-16 21:20 | Inpatient (IN) | payer OTHER, SELFPAY ==
[2024-08-16] VITALS (8 sets, daily range): BP systolic 130; BP diastolic 96; PULSE 94–110; O2SAT 96–100
--- NOTE | 2024-08-16 23:31 | LDADM ---
This patient, Jeremi Alonso, was admitted to Labor/Delivery/Recovery 105 on 08/16/24 at 21:20. Plans for labor, pain management and were discussed with patient. Patient/family oriented to hospital policies and general routines including ID bracelet, bed and alarms, visiting hours, pain management, procedures, bathroom and other care routines, personal items, smoking policy, room service/diet and guest tray routines, infant security routines, and visiting hours. Patient/Family are encouraged to report perceived risks to care and to ask questions if they do not understand what they are told or what they should do. See OBIX for further documentation.
[2024-08-16] MEDS: LACTATED RINGERS 1,000 ML 125 ML IV CONT (23:56)
[2024-08-16] MEDS: AMPICILLIN 2 GM/NS 100 ML 2 GM/100 ML BAG IVPB (23:57)
[2024-08-17] VITALS (112 sets, daily range): BP systolic 85–145; BP diastolic 36–106; PULSE 57–177; RESP 16–18; TEMP 36.3–36.9; O2SAT 84–100; BMI 28.3
[2024-08-17 00:04] LABS: Basophils Absolute Auto 0.1 K/mm3 (0.0-0.1); Eosinophils Absolute Auto 0.1 K/mm3 (0-0.3); Eosinophils Percent Auto 1.5 % (0-4.4); Hematocrit 35.6 % (37.0-47.0); Hemoglobin 11.5 g/dL (12.0-15.0); Immature Granulocyte Absolute 0.25 K/mm3 (0.00-0.031); Immature Granulocyte Percent A 3.1 % (0-0.5); Lymphocytes Absolute Auto 1.91 K/mm3 (0.9-3.2); Lymphocytes Percent Auto 23.7 % (18.3-44.2); Mean Corpuscular HGB Conc 32.3 g/dl (32-36); Mean Corpuscular Hemoglobin 26.7 pg (26-34); Mean Corpuscular Volume 82.8 fl (80-100); Mean Platelet Volume 11.3 fl (7.4-10.4); Monocytes Absolute Auto 0.8 K/mm3 (0.1-0.6); Monocytes Percent Auto 9.7 % (2.6-8.5); Neutrophils Absolute Auto 4.9 K/mm3 (1.3-6.7); Platelet Count Result 253 k/mm3 (150-375); Red Cell Distribution Width 14.2 % (11.5-14.5); White Blood Count 8.1 K/mm3 (4.5-10.0)
[2024-08-17] MEDS: ONDANSETRON INJ 4 MG/2 ML VIAL IV PUSH (00:11)
[2024-08-17 00:25] LABS: Rapid Plasma Reagin Non-Reactive (NonReactive)
[2024-08-17 00:58] LABS: HIV 1/2 Ab P24 Ag Result Negative (Negative)
--- NOTE | 2024-08-17 01:58 | P.PNAN_ITS ---
Anes - Eval Pre Procedure Procedure: Labor Epidural Date/Time: 08/17/24 01:58 Surgeon: Cat Preop Diagnosis: Labor Pain Pre Op Diagnosis: Contractions Patient Data Age: 24 Gender: F Height: 1.6 m Weight: 72.7 kg Last Vital Signs Temp 36.9 C 08/17/24 00:01 Pulse 101 H 08/17/24 01:30 BP 115/72 08/17/24 01:30 Pulse Ox 100 08/17/24 01:56 O2 Del Method Room Air 08/17/24 00:14 Allergies Allergy/AdvReac Type Severity Reaction Status Date / Time No Known Allergies Allergy Verified 08/06/24 14:18 Home Medications ?Medication ?Instructions ?Recorded ?Confirmed ?Type valacyclovir 500 mg tablet 500 mg PO DAILY 06/30/21 08/06/24 History nitrofurantoin 25 mg/5 mL oral 100 mg PO BID 3 days #600 mg 07/10/24 08/06/24 Rx suspension Laboratory Tests 08/16/24 23:35 WBC 8.1 K/mm3 (4.5-10.0) RBC 4.30 M/mm3 (4.2-5.4) Hgb 11.5 L g/dL (12.0-15.0) Hct 35.6 L % (37.0-47.0) MCV 82.8 fl (80-100) MCH 26.7 pg (26-34) MCHC 32.3 g/dl (32-36) RDW 14.2 % (11.5-14.5) Plt Count 253 k/mm3 (150-375) MPV 11.3 H fl (7.4-10.4) Immature Gran % (Auto) 3.1 H % (0-0.5) Neut % (Auto) 61.0 % (45.5-73.1) Lymph % (Auto) 23.7 % (18.3-44.2) [place] % (Auto) 9.7 H % (2.6-8.5) Eos % (Auto) 1.5 % (0-4.4) Baso % (Auto) 1.0 % (0.2-1.2) Lymph # (Auto) 1.91 K/mm3 (0.9-3.2) [place] # (Auto) 0.8 H K/mm3 (0.1-0.6) Eos # (Auto) 0.1 K/mm3 (0-0.3) Baso # (Auto) 0.1 K/mm3 (0.0-0.1) Abs Immat Gran (auto) 0.25 H K/mm3 (0.00-0.031) Absolute Neuts (auto) 4.9 K/mm3 (1.3-6.7) Absolute Nucleated RBC 0.000 K/mm3 (0.0-0.012) Nucleated RBC % 0.0 % (0.0-0.2) RPR Non-reactive (NonReactive) HIV 1&2 Ab/P24 Ag 4thGn Negative (Negative) Blood Type O Positive Antibody Screen Negative Patient hx anesthesia problems: none Family hx anesthesia problems: none Results Review: All pre-operative results and documents have been reviewed as part of the pre- operative evaluation. [facility] Past Medical History Medical History Over weight STD (female) and not yet delivered GERD (gastroesophageal reflux disease) Seizure Anxiety and depression Surgical History Surgical History No pertinent past surgical history Family History Family History Other No pertinent family history Social History Social History Smoking status: Former smoker Substance use: never Do You Feel Safe in your Home?: Yes Lack of Transportation: No Lack of Food: Never True Current Housing: I Have Housing Concerned About Future Housing: No Difficulty Paying Gas/Electric Bills: No Difficulty Paying for Meds: No Currently Unemployed: No Education: High School Diploma/GED Difficulty w/ Childcare or Family Care: No Spiritual care concerns: No Exam Day of Procedure 08/17/24 01:58 Patient weight: normal Heart: regular rate and rhythm Lungs: normal air movement Airway: Mallampati scale class II Neurological: alert and oriented
[2024-08-17] MEDS: LACTATED RINGERS 1,000 ML 125 ML IV CONT (02:21)
[2024-08-17] MEDS: OXYTOCIN 30 UNITS/NS 500 ML 30 UNITS/500 ML BAG 999 UNITS IV CONT (03:21)
--- NOTE | 2024-08-17 03:27 | WPDOBADMIT ---
Obstetrics - Admit Note Admission Note: record reviewed. No pertinent additions to the history and/or any subsequent changes in the physical findings that are not consistent with the expected course of the were found. Additions to the history and/or subsequent changes in the physical findings follow. None.
--- NOTE | 2024-08-17 03:28 | P.PCNOB_ITS ---
OB - Vaginal Delivery Note Procedure Delivery date: 08/17/24 Induction method: None Delivery monitor: External FHT and External Uterine Route of delivery: Episiotomy description: None Laceration Description: None Specimen: Yes (placenta) Quantitative Blood Loss (ml): 50 Anesthesia type: Epidural Disposition: Floor Complications: No immediate complications [place] [facility] Date of : 08/17/24 Gestational Age by Date: 38 gender: Female Weight (pounds): 5 Weight (ounces): 12 presentation: vertex position: Right Occiput Anterior Placenta delivery description: Spontaneous Cord Vessel Description: 3 Vessels and Other (Due to meconium, cord clamped and cut immediately as not immediate cry.) score one minute: 8 score five minutes: 9
--- NOTE | 2024-08-17 03:29 | P.DS_ITS ---
DS: Admitting Diagnosis Discharge Date 08/18/2024 <Aniceto Alvarez MD - Last Filed: 08/18/24 07:03> Admitting Diagnosis IUP 38 6/7 wks labor <Joan Rocha MD - Last Filed: 08/19/24 12:29> DS: Discharge Diagnosis Discharge Diagnosis (1) (normal spontaneous vaginal delivery): Code(s): O80 - Encounter for full-term uncomplicated delivery <Joan Rocha MD - Last Filed: 08/19/24 12:29> Status: Acute <Joan Rocha MD - Last Filed: 08/19/24 12:29> OB - DS: Summary Hospital Course Hospital Course: Patient underwent spontaneous vaginal delivery. Her hospital course unremarkable. She remained afebrile. She was up, voiding without difficulty, eating regular diet, ambulating, and generally without complaints. <Joan Rocha MD - Last Filed: 08/19/24 12:29> OB Procedures : Ultrasound <Joan Rocha MD - Last Filed: 08/19/24 12:29> OB Procedures Intrapartum: Spontaneous Vag Delivery <Joan Rocha MD - Last Filed: 08/19/24 12:29> OB Procedures: : None <Joan Rocha MD - Last Filed: 08/19/24 12:29> Peripartum Data Delivery Method: Natural Vaginal <Joan Rocha MD - Last Filed: 08/19/24 12:29> Laceration Description: None <Joan Rocha MD - Last Filed: 08/19/24 12:29> Episiotomy description: None <Joan Rocha MD - Last Filed: 08/19/24 12:29> complications: none <Joan Rocha MD - Last Filed: 08/19/24 12:29> Status at Discharge Functional status at discharge: independent ambulation <Joan Rocha MD - Last Filed: 08/19/24 12:29> Overall status at discharge: patient is progressing back to baseline <Joan Rocha MD - Last Filed: 08/19/24 12:29> Time Spent with Patient Time attestation: Total time spent providing and/or coordinating discharge services: <Joan Rocha MD - Last Filed: 08/19/24 12:29> Exam Const: General: cooperative, healthy appearing and comfortable <Aniceto Alvarez MD - Last Filed: 08/18/24 07:03> Nutritional Appearance: average body habitus <Aniceto Alvarez MD - Last Filed: 08/18/24 07:03> Orientation/consciousness: oriented to person, oriented to place and oriented to time <Aniceto Alvarez MD - Last Filed: 08/18/24 07:03> HENMT: Head: normal to inspection <Aniceto Alvarez MD - Last Filed: 08/18/24 07:03> Resp: Effort & Inspection: normal respiratory effort <Aniceto Alvarez MD - Last Filed: 08/18/24 07:03> Cardio: Rate: regular rate <Aniceto Alvarez MD - Last Filed: 08/18/24 07:03> Rhythm: regular rhythm <Aniceto Alvarez MD - Last Filed: 08/18/24 07:03> Heart sounds: S1 normal heart sound present and S2 normal heart sound present <Aniceto Alvarez MD - Last Filed: 08/18/24 07:03> GI: Inspection: normal to inspection <Aniceto Alvarez MD - Last Filed: 08/18/24 07:03> DS: Data Data Completed and Pending Labs on day of discharge: Labs from last 24 hours 08/16/24 23:35 WBC 8.1 RBC 4.30 Hgb 11.5 L Hct 35.6 L MCV 82.8 MCH 26.7 MCHC 32.3 RDW 14.2 Plt Count 253 MPV 11.3 H Immature Gran % (Auto) 3.1 H Neut % (Auto) 61.0 Lymph % (Auto) 23.7 [place] % (Auto) 9.7 H Eos % (Auto) 1.5 Baso % (Auto) 1.0 Lymph # (Auto) 1.91 [place] # (Auto) 0.8 H Eos # (Auto) 0.1 Baso # (Auto) 0.1 Abs Immat Gran (auto) 0.25 H Absolute Neuts (auto) 4.9 Absolute Nucleated RBC 0.000 Nucleated RBC % 0.0 RPR Non-reactive HIV 1&2 Ab/P24 Ag 4thGn Negative Blood Type O Positive Antibody Screen Negative <Joan Rocha MD - Last Filed: 08/19/24 12:29> Discharge Plan Discharge Attending physician on discharge: Aniceto Pacheco <Joan Rocha MD - Last Filed: 08/19/24 12:29> Aniceto Pacheco <Aniceto Alvarez MD - Last Filed: 08/18/24 07:03> Consulting providers: Joan Rocha; Karen Holder; Reza Boland <Joan Rocha MD - Last Filed: 08/19/24 12:29> Discharging Clinician: Aniceto Pacheco <Joan Rocha MD - Last Filed: 08/19/24 12:29> Aniceto Pacheco <Aniceto Alvarez MD - Last Filed: 08/18/24 07:03> Anticipated Discharge Date/Time: 08/19/24 03:30 <Joan Rocha MD - Last Filed: 08/19/24 12:29> Patient Disposition: Home, Self-Care <Joan Rocha MD - Last Filed: 08/19/24 12:29> Activity: may shower, no straining and pelvic rest <Joan Rocha MD - Last Filed: 08/19/24 12:29> may shower, no straining and pelvic rest <Aniceto Alvarez MD - Last Filed: 08/18/24 07:03> Diet: regular <Joan Rocha MD - Last Filed: 08/19/24 12:29> regular <Aniceto Alvarez MD - Last Filed: 08/18/24 07:03> Wound Care Instructions: follow printed instructions <Joan Rocha MD - Last Filed: 08/19/24 12:29> follow printed instructions <Aniceto Alvarez MD - Last Filed: 08/18/24 07:03> Discharge Instructions: Education: Mom and Baby Guide Given to: Mother Follow-Up: Call your delivering provider's office for an appointment to be seen in: 6 Weeks Mom and baby should come to the [facility] for the follow-up appointment. Appointment Date/Time: August 20, 2024 at 10:00 am What to expect at your follow-up visit: Blood Pressure Check Physical Assessment Call [phone] if you are unable to keep your appointment time. BREAST CARE: * Wear a snug supportive bra. * For engorgement discomfort: Bottle Feeding: * May apply ice packs EPISIOTOMY/PERINEAL CARE: * Until bleeding stops, use your theodora bottle after urinating * Change your pad frequently throughout the day * You may take sitz baths several times a day (fill your bathtub with warm water and soak for 20 minutes.) Do NOT bathe in the water * No tub baths until seen by your physician - You may shower ACTIVITY: * Rest as much as possible. * Do not exercise or lift anything heavier than your baby (such as laundry or other children.) * Avoid stairs or driving as much as possible. * Do not put anything into the vagina. No douching, tampons, or sexual activity until seen by physician. NOTIFY PHYSICIAN IF YOU HAVE ANY QUESTIONS OR IF ANY OF THE FOLLOWING SYMPTOMS OCCUR: * If your vaginal bleeding becomes foul smelling. * If your vaginal bleeding becomes more heavy than a period or if your bleeding changes from pink to bright red. However, you may pass an occasional walnut- sized clot once or twice for the first week . * If you experience a sharp, shooting pain in you calves. DIET: * Eat regular, well-balanced meals. * Drink plenty of fluids daily. <Joan Rocha MD - Last Filed: 08/19/24 12:29> Patient Language: Chinese <Joan Rocha MD - Last Filed: 08/19/24 12:29> Stand Alone Forms: General Discharge Information <Joan Rocha MD - Last Filed: 08/19/24 12:29> Follow-up/Referrals: Aniceto Pacheco MD [Physician] - Call for Appointment <Joan Rocha MD - Last Filed: 08/19/24 12:29> Discharge Medications: Continued valacyclovir 500 mg tablet 500 mg PO DAILY Discontinued nitrofurantoin 25 mg/5 mL Suspension 100 mg PO BID 3 Days Qty: 600 0RF Rx Instructions: must administer with a meal/food <Joan Rocha MD - Last Filed: 08/19/24 12:29> Date of admission: 08/16/24 21:20 <Joan Rocha MD - Last Filed: 08/19/24 12:29> Primary Care Provider: ObduliaJoanie <Joan Rocha MD - Last Filed: 08/19/24 12:29> Admitting Provider: Joan Rocha <Joan Rocha MD - Last Filed: 08/19/24 12:29> Attending physician on admission: Aniceto Pacheco <Joan Rocha MD - Last Filed: 08/19/24 12:29> Condition: Stable <Joan Rocha MD - Last Filed: 08/19/24 12:29>
[2024-08-17] MEDS: OXYTOCIN 30 UNITS/NS 500 ML 30 UNITS/500 ML BAG 125 UNITS IV CONT (03:55)
--- NOTE | 2024-08-17 07:22 | PC.NURSE ---
Patient transferred to post room #283 via wheelchair. Support person present. Oriented to unit, room, information board, rooming in, admission packet and security measures. Patient verbalizes understanding.
[2024-08-17] MEDS: IBUPROFEN 600 MG TABLET PO ×2 (07:30→19:52)
[2024-08-17] MEDS: ACETAMINOPHEN 325 MG TABLET 650 MG PO (19:52)
[2024-08-17] MEDS: valACYclovir HCL 500 MG TABLET PO (20:30)
[2024-08-18 03:30] LABS: Hematocrit 28.1 % (37.0-47.0); Hemoglobin 8.9 g/dL (12.0-15.0)
[2024-08-18 05:45] VITALS: BP 103/65; PULSE 85; RESP 16; TEMP 36.1; O2SAT 98
--- NOTE | 2024-08-18 07:03 | P.PNOB_ITS ---
OB - PN: Subj Subjective Date/time seen: 08/18/24 07:03 Patient comments: no complaints, pain well controlled, tolerating diet and flatus present OB - PN: Obj Data Labs 08/18/24 03:26 Labs: Laboratory Results - last 24 hr 08/18/24 03:26 Hgb 8.9 L Hct 28.1 L OB - PN A/P Assessment and Plan (1) Supervision of high risk , unspecified, third trimester: Code(s): O09.93 - Supervision of high risk , unspecified, third trimester Status: Acute Plan All today will give Depo-Provera 150mg IM Time Spent With Patient Time: Total time spent is greater than 50% in coordination of care (as documented) at patient's floor/unit and/or counseling patient: Review of Systems 2 Review of Systems: CONSTITUTIONAL: Denies fever, chills, or sweats. CARDIOVASCULAR: See HPI. RESPIRATORY: See HPI. GASTROINTESTINAL: Denies abdominal pain, nausea, vomiting. All systems reviewed & are unremarkable except as noted in HPI and below Exam 2 Const: General: cooperative, healthy appearing and comfortable Nutritional Appearance: average body habitus Orientation/consciousness: oriented to person, oriented to place and oriented to time GI: Inspection: normal to inspection (Fundus firm below the umbilicus)
[2024-08-18 08:00] VITALS: BP 101/65; PULSE 72; RESP 16; TEMP 37.1; O2SAT 100
[2024-08-18] MEDS: medroxyPROGESTERone ACETATE IM 150 MG/ML SYR IM (09:35)
[2024-08-18] MEDS: POLYSACCHARIDE IRON COMPLEX 150 MG CAPSULE PO (09:36)
[2024-08-18] MEDS: DOCUSATE SODIUM 100 MG CAPSULE PO (09:36)
--- NOTE | 2024-08-18 12:08 | PC.NURSE ---
Patient was given the opportunity to view the discharge video Mother & Baby Care, The First Two Weeks and to ask questions. Patient declined viewing the video and has been given the mother/baby guide for home reference.
--- NOTE | 2024-08-18 13:27 | WPDANLDPN2 ---
Anes-Prog Note L&D Date/Time: 08/18/24 13:27 Comfortable throughout: labor and delivery Neuraxial method: epidural Epidural/Spinal procedure site: clean & non-tender Neuro status: Neuro function grossly intact. Cardiovascular status: normal Respiratory status: normal Airway patency: baseline Mental status: baseline Post-Op hydration status: normal Vital Signs: Last Vital Signs Temp 37.1 C 08/18/24 08:00 Pulse 72 08/18/24 08:00 Resp 16 08/18/24 08:00 BP 101/65 08/18/24 08:00 Pulse Ox 100 08/18/24 08:00 O2 Del Method Room Air 08/18/24 08:00 Pain score (VAS): 1 I/O: Intake & Output 08/17/24 08/18/24 08/18/24 23:59 07:59 15:59 Intake Total 0 Balance 0 Post-procedural complaints: none Patient feedback: Patient satisfied with anesthetic care.
[2024-08-20 10:19] VITALS: BP 109/70; PULSE 88; RESP 18; TEMP 36.6; O2SAT 100
== END 2024-08-18 13:17 | disposition home or self-care (01) | DRG 560 ==
LOC: ANHLDR 08-17 03:31 → ANHOB2 08-17 07:25
PROVIDERS: Admitting Provider Obstetrics & Gynecology Gynecology; PCP Physician Assistant; Visit Provider Obstetrics & Gynecology
DX: O77.0 Labor and delivery complicated by meconium in amniotic fluid (principal); O99.824 Streptococcus B carrier state complicating childbirth; Z37.0 Single live birth; Z3A.38 38 weeks gestation of pregnancy; O98.32 Other infections with a predominantly sexual mode of transmission complicating childbirth; A60.09 Herpesviral infection of other urogenital tract
CPT/HCPCS: 36415; 85014; 85018; 85025; 86592; 86703; 86850; 86900; 86901; 88307; A9270; G0432; J0290; J1050; J2405; J2590; J2795; J7120